=== PATIENT | male | born 1930 | race Caucasian/White ===

== ENCOUNTER 2018-02-02 10:04 | Emergency (ER) | payer OTHER ==
--- NOTE | 2018-02-02 10:22 | PDOC ---
Attending Attestation - Resident Resident Name: Valentino Null - ED Attending Attestation I have performed the following: I have examined & evaluated the patient, The case was reviewed & discussed with the resident, I agree w/resident's findings & plan, Exceptions are as noted - HPI HPI: 02/02/18 10:15 Mr Fagan is a mariana 87 yo M who presents to the ER to be checked out Briefly, he has a history of hypertension, hyperlipidemia, coronary artery disease, CABG 2. He and his were going to go out, she was loading the car in the garage The patient didn't realize this and closed the garage door onto the car He heard loud noises in the garage and his screaming which frightened him He then opened the garage door and heard the same noises This is a new vehicle and this concerned him greatly No chest pain No palpitations No shortness of breath PCP: Dr Mcdaniel Linoleum Tile Layer: Dr Dennis Lara, [facility], Social History: retired, resides at home with his Smoking:quit smoking >20 years ago Alcohol:none Drugs: none - Physicial Exam PE: 02/02/18 10:22 GENERAL: Awake, alert, and fully oriented, in no acute distress. HEAD: Normal with no signs of trauma. LUNGS: Breath sounds equal, clear to auscultation bilaterally. No wheezes, and no crackles. No accessory muscle use. HEART: Iregular rate and rhythm, normal S1 and S2 without murmur, rub or gallop. ABDOMEN: Soft, nontender, not distended, normoactive bowel sounds, no guarding, no rebound, no masses. No hepatomegaly or splenomegaly. MUSCULOSKELETAL: Normal range of motion at all joints. No bony deformities or tenderness. No CVA tenderness. NEUROLOGICAL: Cranial nerves II through XII grossly intact. Normal speech, gait not observed. SKIN: Warm, dry, normal turgor, no rashes or lesions noted. NEUROLOGICAL: Cranial nerves II-XII intact. Normal speech. Normal gait. PSYCHIATRIC: Cooperative. Good eye contact. Appropriate mood and affect. - Medical Decision Making 02/02/18 10:30 EKG: Afib rate of 62 bom, axis nml, intervals nml, no st elevation or depression , t waves upright Laboratory Tests 02/02/18 02/02/18 10:27 10:27 Creatine Kinase 78 Troponin I < 0.03 Pt feels better Will discharge to home Clinical impression: anxiety, initial presentation
--- NOTE | 2018-02-02 10:30 | PDOC ---
History of Present Illness - General Chief Complaint: Psychiatric Stated Complaint: ANXIETY Time Seen by Provider: 02/02/18 10:08 - History of Present Illness Initial Comments: 02/02/18 10:23 Mr. Fagan is an 87 yo male w/ pmh of HTN, HLD, CAD, and CABGx2 who presents for evaluation after experiencing a stressor earlier today when he hit the trunk of his new car into the garage door. He was not in the car and had no contact with either the garage or the car but experienced some anxiety and wanted to "get checked out." The patient denies chest pain, shortness of breath, headache and dizziness. Denies fever, chills, nausea, vomit, diarrhea and constipation. Denies dysuria, frequency, urgency and hematuria. Allergies: NKDA Past History - Past Medical History Allergies/Adverse Reactions: Allergies Allergy/AdvReac Type Severity Reaction Status Date / Time No Known Allergies Allergy Verified 02/02/18 10:05 Home Medications: Ambulatory Orders Atorvastatin Ca [Lipitor] 40 mg PO DAILY 10/20/14 Rivaroxaban [Xarelto -] 10 mg PO DAILY 05/09/15 Losartan Potassium [Cozaar -] 25 mg PO DAILY #30 tablet 02/29/16 Metoprolol Succinate [Toprol XL -] 25 mg PO DAILY #30 tab.sr.24h 02/29/16 Anemia: No Asthma: No Cancer: No Cardiac Disorders: Yes (HX CAD) CVA: No COPD: No CHF: No Dementia: No Diabetes: No GI Disorders: Yes (4-5 YRS AGO ULCER FROM ASPIRIN-HEALED AFTER STOPPING ASPIRIN) Disorders: No HTN: Yes (DX 1993) Hypercholesterolemia: Yes (DX 1993) Liver Disease: No Seizures: No Thyroid Disease: No - Surgical History Abdominal Surgery: No Appendectomy: No Cardiac Surgery: Yes (20 YRS. CABG X 5, 2010 CABG X 3 OR 4-CAN'T REMEMBER) Cholecystectomy: No Lung Surgery: No Neurologic Surgery: No Orthopedic Surgery: No - Immunization History Immunization Up to Date: Yes - Suicide/Smoking/Psychosocial Hx Smoking History: Former smoker Have you smoked in the past 12 months: No If you are a former smoker, when did you quit?: 30 YRS AGO Hx Alcohol Use: Yes (1 WINE EVERY OTHER DAY) Drug/Substance Use Hx: No Substance Use Type: Alcohol Hx Substance Use Treatment: No Review of Systems - Review of Systems Comments:: 02/02/18 10:30 GENERAL/CONSTITUTIONAL: No fever or chills. No weakness. HEAD, EYES, EARS, NOSE AND THROAT: No change in vision. No ear pain or discharge. No sore throat. CARDIOVASCULAR: No chest pain or shortness of breath RESPIRATORY: No cough, wheezing, or hemoptysis. GASTROINTESTINAL: No nausea, vomiting, diarrhea or constipation. GENITOURINARY: No dysuria, frequency, or change in urination. MUSCULOSKELETAL: No joint or muscle swelling or pain. No neck or back pain. SKIN: No rash NEUROLOGIC: No headache, vertigo, loss of consciousness, or change in strength/ sensation. ENDOCRINE: No increased thirst. No abnormal weight change HEMATOLOGIC/LYMPHATIC: No anemia, easy bleeding, or history of blood clots. ALLERGIC/IMMUNOLOGIC: No hives or skin allergy. *Physical Exam - Physical Exam Comments: 02/02/18 10:30 GENERAL: Awake, alert, and fully oriented, in no acute distress HEAD: No signs of trauma, normocephalic, atraumatic EYES: PERRLA, EOMI, sclera anicteric, conjunctiva clear ENT: Auricles normal inspection, hearing grossly normal, nares patent, oropharynx clear without exudates. Moist mucosa NECK: Normal ROM, supple, no lymphadenopathy, JVD, or masses LUNGS: No distress, speaks full sentences, clear to auscultation bilaterally HEART: Regular rate and rhythm, normal S1 and S2, no murmurs, rubs or gallops, peripheral pulses normal and equal bilaterally. ABDOMEN: Soft, nontender, normoactive bowel sounds. No guarding, no rebound. No masses EXTREMITIES: Normal inspection, Normal range of motion, no edema. No clubbing or cyanosis. NEUROLOGICAL: Cranial nerves II through XII grossly intact. Normal speech, normal gait, no focal sensorimotor deficits SKIN: Warm, Dry, normal turgor, no rashes or lesions noted. Medical Decision Making - Medical Decision Making 02/02/18 10:30 Mr. Fagan is an 87 yo male w/ pmh as described who presents for evaluation after experiencing stressor earlier today. Patient appears well on exam, is talkative and pleasant. Has no complaints at this time. EKG / cardiac profile sent for evaluation. 02/02/18 11:16 Patient EKG significant for rate controlled afib. Normal access, normal intervals, no ST elevations or depressions. Non-concerning EKG. Cardiac labs wnl as below. Discharging patient w/ instructions to follow-up with primary care provider for further evaluation. Patient verbalized understanding and agreement and will comply. *DC/Admit/Observation/Transfer Diagnosis at time of Disposition: Anxiety - Discharge Dispostion Disposition: HOME - Referrals Referrals: Qamar Mcdaniel MD [Staff Physician] - - Patient Instructions Additional Instructions: Please return to ER if any pain, palpitations, fever, chills, or other concerning symptoms. Follow-up with primary care provider as needed for any further non-emergent needs. - Post Discharge Activity
[2018-02-02 10:39] VITALS: BP 145/79; PULSE 61; TEMP 98.3; BMI 21.4
--- NOTE | 2018-02-03 08:23 | EKG ---
Test Reason : Blood Pressure : / mmHG Vent. Rate : 062 BPM Atrial Rate : 119 BPM P-R Int : 000 ms QRS Dur : 106 ms QT Int : 426 ms P-R-T Axes : 000 -05 053 degrees QTc Int : 432 ms ATRIAL FIBRILLATION ABNORMAL ECG NO PREVIOUS ECGS AVAILABLE Confirmed by TREVOR LAKHANI, MAGI ([id number]) on 02/03/2018 8:22:53 AM Referred By: ELVIRA CERON Confirmed By:MAGI MURRAY MD
== END 2018-02-02 11:29 | disposition home or self-care (01) ==
LOC: FER 10:04
DX: F41.0 Panic disorder [episodic paroxysmal anxiety] (principal); I48.91 Unspecified atrial fibrillation; Z87.891 Personal history of nicotine dependence; I10 Essential (primary) hypertension; E78.00 Pure hypercholesterolemia, unspecified; I25.10 Atherosclerotic heart disease of native coronary artery without angina pectoris
CPT/HCPCS: 36415; 82550; 84484; 93005; 99282-25

== ENCOUNTER 2018-02-20 23:06 | Observation (INO) | payer OTHER ==
--- NOTE | 2018-02-20 23:24 | PDOC ---
History of Present Illness - General Chief Complaint: Pain, Acute Stated Complaint: PAIN IN LEFT ARM AND BACK Time Seen by Provider: 02/20/18 23:22 History Source: Patient Exam Limitations: No Limitations - History of Present Illness Initial Comments: 02/20/18 23:52 This is an 87-year-old male who comes in complaining of left arm pain and posterior chest pain. Patient denies any associated symptoms of shortness of breath, nausea, diaphoresis. Patient does have a history of coronary artery disease, hypertension, high cholesterol. Patient has had bypass surgery 2 in the past. Prior to the last time he had the surgery he was experiencing significant chest pain that was different than this time. Patient also has a history of atrial fibrillation and is on xaralto for an anticoagulant. PAST MEDICAL HISTORY: Significant history of coronary artery disease with multiple is factors PAST SURGICAL HISTORY: Coronary artery bypass surgery FAMILY HISTORY: no pertinant history SOCIAL HISTORY: Pt lives with family and is retired. MEDICATIONS: reviewed ALLERGIES: As per nursing notes Review of Systems General: No fevers or chills, no weakness, no weight loss HEENT: No change in vision. No sore throat,. No ear pain CardioVascular: No chest pain or shortness of breath Respiratory:No cough, or wheezing. Gastrointestinal: no nausea, vomitting, diarrhea or constipation, No rectal bleeding Genitourinary: No dysuria, hematuria, or frequency Musculoskeletal: No joint or muscle pain or swelling Neurologic: No headache, vertigo, dizziness or loss of consciousness Psychiatric: nor depression Skin: No rashes or easy bruising Endocrine: no increased thirst or abnormal weight change Allergic: no skin or latex allergy All other systems reviewed and normal Exam: General: Well-nourished well-developed individual, no acute distress HEENT: Throat: Normal, tonsils normal, no erythema or exudate Neck: Supple, no meningeal signs, no lymphadenopathy Eyes::Pupils equal reactive and round, extraocular motion intact Chest: Nontender to palpation Cardiac: S1-S2 normal, regular rate and rhythm, no murmurs rubs or gallops Respiratory: Lungs clear to auscultation bilateral Abdomen: Soft, nondistended, normal bowel sounds, nontender to palpation diffusely Extremities: Warm, dry, no cyanosis, clubbing, or edema Skin: No rashes Neuro: Alert and oriented x3, CN II - XII intact, nonfocal exam with normal strength, normal sensation, normal reflexes, normal gait, Psych: Normal mood and affect Medical decision making this is a 87-year-old male who comes in complaining of left arm and posterior chest pain. Patient's heart scores 5. Patient has a troponin of 0.06 which is measurable and the upper limit of normal. Dr. Benavides was contacted as this is a patient of Dr. Benavides's and his requested that the patient be admitted by the hospitalist service. 02/21/18 00:52 Patient not given aspirin as he says he cannot take it because it fitzgerald a hole in his stomach Past History - Past Medical History Allergies/Adverse Reactions: Allergies Allergy/AdvReac Type Severity Reaction Status Date / Time No Known Allergies Allergy Verified 02/20/18 23:11 Home Medications: Ambulatory Orders Atorvastatin Ca [Lipitor] 40 mg PO DAILY 10/20/14 Rivaroxaban [Xarelto -] 10 mg PO DAILY 05/09/15 Losartan Potassium [Cozaar -] 25 mg PO DAILY #30 tablet 02/29/16 Metoprolol Succinate [Toprol XL -] 25 mg PO DAILY #30 tab.sr.24h 02/29/16 Anemia: No Asthma: No Cancer: No Cardiac Disorders: Yes (HX CAD) CVA: No COPD: No CHF: No Dementia: No Diabetes: No GI Disorders: Yes (4-5 YRS AGO ULCER FROM ASPIRIN-HEALED AFTER STOPPING ASPIRIN) Disorders: No HTN: Yes (DX 1993) Hypercholesterolemia: Yes (DX 1993) Liver Disease: No Seizures: No Thyroid Disease: No - Surgical History Abdominal Surgery: No Appendectomy: No Cardiac Surgery: Yes (20 YRS. CABG X 5, 2010 CABG X 3 OR 4-CAN'T REMEMBER) Cholecystectomy: No Lung Surgery: No Neurologic Surgery: No Orthopedic Surgery: No - Immunization History Immunization Up to Date: Yes - Suicide/Smoking/Psychosocial Hx Smoking History: Former smoker Have you smoked in the past 12 months: No If you are a former smoker, when did you quit?: 30 YRS AGO Information on smoking cessation initiated: No Hx Alcohol Use: No Drug/Substance Use Hx: No Substance Use Type: Alcohol Hx Substance Use Treatment: No *Physical Exam - Vital Signs Last Vital Signs Temp Pulse Resp BP Pulse Ox 97.7 F 56 L 18 132/75 99 02/20/18 23:13 02/20/18 23:13 02/20/18 23:13 02/20/18 23:13 02/20/18 23:13 Heart Score/ECG Review - History History: Slightly suspicious - Electrocardiogram EKG: Non specific repolarization disturbance - Age Age: >/= 65 - Risk Factors Risk Factors Heart Score: Yes Hx Hypercholesterolemia, Yes Hx Hypertension, Yes Positive family hx of cardiac disease Based on the list above the patient has:: >/=3 risk factors or Hx atherosclerotic disease - Troponin Troponin: </= normal limit - Score Heart Score - Total: 5 ED Treatment Course - LABORATORY CBC & Chemistry Diagram: 02/20/18 23:30 02/20/18 23:30 *DC/Admit/Observation/Transfer Diagnosis at time of Disposition: Chest pain - Discharge Dispostion Condition at time of disposition: Stable Decision to Admit order: Yes - Referrals - Patient Instructions - Post Discharge Activity
[2018-02-20 23:36] LABS: BASO % 2.6 % (0-2.0); EOS % 4.6 % (0-4.5); HEMATOCRIT 36.2 % (35.4-49); HEMOGLOBIN 12.2 GM/dl (11.7-16.9); LYMPH % 24.4 % (8-40); MCH 28.4 pg (25.7-33.7); MCHC 33.6 g/dl (32.0-35.9); MEAN CELL VOLUME 84.5 fl (80-96); MEAN PLT VOLUME 10.1 fl (7.5-11.1); MONO % 9.5 % (3.8-10.2); NEUT % 58.9 % (42.8-82.8); PLATELET COUNT 140 K/MM3 (134-434); RBC 4.29 M/mm3 (4.00-5.60); RDW 14.9 % (11.9-15.9); WHITE BLOOD COUNT 7.9 K/mm3 (4.0-10.8)
[2018-02-20 23:38] LABS: URINE APPEARANCE Clear; URINE BILIRUBIN Negative (NEGATIVE); URINE GLUCOSE (UA) Negative (NEGATIVE); URINE KETONE Negative (NEGATIVE); URINE LEUK ESTERASE Negative (NEGATIVE); URINE NITRITE Negative (NEGATIVE); URINE PROTEIN Negative (NEGATIVE); URINE UROBILINOGEN 0.2 (0.2-1.0)
[2018-02-20 23:42] LABS: URINE COLOR YELLOW
[2018-02-20 23:51] LABS: PH,URINE 5.5 (4.5-8); URINE APPEARANCE Clear; URINE BILIRUBIN Negative (NEGATIVE); URINE GLUCOSE (UA) Negative (NEGATIVE); URINE KETONE Trace (NEGATIVE); URINE LEUK ESTERASE Negative (NEGATIVE); URINE NITRITE Negative (NEGATIVE); URINE PROTEIN Trace (NEGATIVE)
[2018-02-20 23:52] LABS: URINE COLOR YELLOW
[2018-02-21 00:03] LABS: ALBUMIN 3.4 g/dl (3.5-5.0); ALK PHOS 75 U/L (32-92); ANION GAP 5 (8-16); BILIRUBIN,TOTAL 0.7 mg/dl (0.2-1.0); BLOOD UREA NITROGEN 21 mg/dl (7-18); CALCIUM 8.4 mg/dl (8.4-10.2); CHLORIDE 107 mmol/L (98-107); CO2 25 mmol/L (22-28); CREATININE 1.2 mg/dl (0.6-1.3); GLUCOSE,RANDOM 96 mg/dl (74-106); POTASSIUM 3.9 mmol/L (3.5-5.1); SGOT/AST 15 U/L (10-42); SGPT/ALT 11 U/L (10-40); SODIUM 137 mmol/L (136-145); TOT PROT 6.5 g/dl (6.4-8.3)
[2018-02-21] MEDS ORDERED: ASPIRIN 81 MG CHEWABLE TABLETS PO ONE (00:48)
[2018-02-21] MEDS ORDERED: ASPIRIN 81 MG CHEWABLE TABLETS ONE (00:51)
[2018-02-21 01:30] VITALS: BMI 20.8
[2018-02-21 07:57] LABS: BASO % 0.7 % (0-2.0); EOS % 5.1 % (0-4.5); HEMOGLOBIN 12.4 GM/dl (11.7-16.9); LYMPH % 23.4 % (8-40); MCH 28.6 pg (25.7-33.7); MCHC 33.5 g/dl (32.0-35.9); MEAN CELL VOLUME 85.3 fl (80-96); MEAN PLT VOLUME 9.8 fl (7.5-11.1); NEUT % 62.8 % (42.8-82.8); PLATELET COUNT 127 K/MM3 (134-434); RBC 4.33 M/mm3 (4.00-5.60); RDW 14.8 % (11.9-15.9); WHITE BLOOD COUNT 6.5 K/mm3 (4.0-10.8)
[2018-02-21 08:21] LABS: ANION GAP 5 (8-16); BLOOD UREA NITROGEN 19 mg/dl (7-18); CALCIUM 8.7 mg/dl (8.4-10.2); CHLORIDE 106 mmol/L (98-107); CO2 28 mmol/L (22-28); CREATININE 1.1 mg/dl (0.6-1.3); GLUCOSE,RANDOM 92 mg/dl (74-106); MAGNESIUM 1.9 mg/dL (1.8-2.4); POTASSIUM 4.4 mmol/L (3.5-5.1); SODIUM 139 mmol/L (136-145)
--- NOTE | 2018-02-21 08:33 | HP ---
CHIEF COMPLAINT: chest discomfort radiating to left scapula PCP: Dr Mcdaniel Film Critic: Dr Matty Lara HISTORY OF PRESENT ILLNESS: Patient is a 87 y/o male with a past medical history of CAD, CABG x 5 (1991 and 2010), AFib (xarelto), and hypertension. patient reports that yesterday he returned from a 9 [address] car ride from [facility] to [place]. Patient reports when he arrived home he developed chest pain to left side of the chest radiating to the left shoulder. Patient denies any shortness of breath or dyspnea on exertion. He does report the pain was intermittent and resolved spontaneously on its own. ER course was notable for: (1)EKG afib w/slow ventricular rate (2)troponin 0.03 (3) chest x-ray no acute pathology noted Recent Travel: returned from a 9 hour car ride from [place] to [place] PAST MEDICAL HISTORY: see hpi PAST SURGICAL HISTORY: see hpi Social History: happily retired, resides at home with Smoking:former Alcohol:last drank call 1 year ago Drugs: none Family History: noncontributory Allergies No Known Allergies Allergy (Verified 02/20/18 23:11) HOME MEDICATIONS: Home Medications Medication Instructions Recorded Atorvastatin Ca [Lipitor] 40 mg PO DAILY 10/20/14 Rivaroxaban [Xarelto -] 10 mg PO DAILY 05/09/15 Losartan Potassium [Cozaar -] 25 mg PO DAILY #30 tablet 02/29/16 Metoprolol Succinate [Toprol XL -] 25 mg PO DAILY #30 tab.sr.24h 02/29/16 REVIEW OF SYSTEMS CONSTITUTIONAL: Absent: fever, chills, diaphoresis, generalized weakness, malaise, loss of appetite, weight change HEENT: Absent: rhinorrhea, nasal congestion, throat pain, throat swelling, difficulty swallowing, mouth swelling, ear pain, eye pain, visual changes CARDIOVASCULAR: Absent: chest pain, syncope, palpitations, irregular heart rate, lightheadedness , peripheral edema RESPIRATORY: Absent: cough, shortness of breath, dyspnea with exertion, orthopnea, wheezing, stridor, hemoptysis GASTROINTESTINAL: Absent: abdominal pain, abdominal distension, nausea, vomiting, diarrhea, constipation, melena, hematochezia GENITOURINARY: Absent: dysuria, frequency, urgency, hesitancy, hematuria, flank pain, genital pain MUSCULOSKELETAL: Absent: myalgia, arthralgia, joint swelling, back pain, neck pain SKIN: Absent: rash, itching, pallor HEMATOLOGIC/IMMUNOLOGIC: Absent: easy bleeding, easy bruising, lymphadenopathy, frequent infections ENDOCRINE: Absent: unexplained weight gain, unexplained weight loss, heat intolerance, cold intolerance NEUROLOGIC: Absent: headache, focal weakness or paresthesias, dizziness, unsteady gait, seizure, mental status changes, bladder or bowel incontinence PSYCHIATRIC: Absent: anxiety, depression, suicidal or homicidal ideation, hallucinations. PHYSICAL EXAMINATION Vital Signs - 24 hr 02/20/18 02/21/18 02/21/18 23:13 00:53 00:55 Temperature 97.7 F 97.6 F Pulse Rate 56 L 68 Pulse Rate [ Left] Respiratory 18 17 20 Rate Blood Pressure 132/75 142/62 Blood Pressure [Right] O2 Sat by Pulse 99 99 100 Oximetry (%) 02/21/18 02/21/18 02/21/18 00:59 06:14 07:48 Temperature 98.6 F Pulse Rate 68 Pulse Rate [ 64 Left] Respiratory 17 20 Rate Blood Pressure 115/59 Blood Pressure 134/72 [Right] O2 Sat by Pulse 99 99 99 Oximetry (%) GENERAL: Awake, alert, and fully oriented, in no acute distress. HEAD: Normal with no signs of trauma. EYES: Pupils equal, round and reactive to light, extraocular movements intact, sclera anicteric, conjunctiva clear. No lid lag. EARS, NOSE, THROAT: Ears normal, nares patent, oropharynx clear without exudates. Moist mucous membranes. NECK: Normal range of motion, supple without lymphadenopathy, JVD, or masses. LUNGS: Breath sounds equal, clear to auscultation bilaterally. No wheezes, and no crackles. No accessory muscle use. HEART: irregular rate and rhythm, normal S1 and S2 without murmur, rub or gallop. ABDOMEN: Soft, nontender, not distended, normoactive bowel sounds, no guarding, no rebound, no masses. No hepatomegaly or splenomegaly. MUSCULOSKELETAL: Normal range of motion at all joints. No bony deformities or tenderness. No CVA tenderness. UPPER EXTREMITIES: 2+ pulses, warm, well-perfused. No cyanosis. No clubbing. No peripheral edema. LOWER EXTREMITIES: 2+ pulses, warm, well-perfused. No calf tenderness. No peripheral edema. NEUROLOGICAL: Cranial nerves II-XII intact. Normal speech. Normal gait. PSYCHIATRIC: Cooperative. Good eye contact. Appropriate mood and affect. SKIN: Warm, dry, normal turgor, no rashes or lesions noted, normal capillary refill. Laboratory Results - last 24 hr 02/20/18 02/20/18 02/20/18 23:30 23:30 23:30 WBC 7.9 RBC 4.29 Hgb 12.2 Hct 36.2 MCV 84.5 MCH 28.4 MCHC 33.6 RDW 14.9 Plt Count 140 MPV 10.1 Neutrophils % 58.9 Lymphocytes % 24.4 D Monocytes % 9.5 Eosinophils % 4.6 H Basophils % 2.6 H D Sodium 137 Potassium 3.9 Chloride 107 Carbon Dioxide 25 Anion Gap 5 L BUN 21 H Creatinine 1.2 Creat Clearance w eGFR 57.41 Random Glucose 96 Calcium 8.4 Phosphorus Magnesium Total Bilirubin 0.7 AST 15 D ALT 11 D Alkaline Phosphatase 75 Creatine Kinase Troponin I Total Protein 6.5 Albumin 3.4 L Urine Color Yellow Urine Appearance Clear Urine pH 6.0 Ur Specific [place] 1.025 Urine Protein Negative Urine Glucose (UA) Negative Urine Ketones Negative Urine Blood Negative Urine Nitrite Negative Urine Bilirubin Negative Urine Urobilinogen 0.2 Ur Leukocyte Esterase Negative 02/20/18 02/20/18 02/20/18 23:30 23:30 23:40 WBC RBC Hgb Hct MCV MCH MCHC RDW Plt Count MPV Neutrophils % Lymphocytes % Monocytes % Eosinophils % Basophils % Sodium Potassium Chloride Carbon Dioxide Anion Gap BUN Creatinine Creat Clearance w eGFR Random Glucose Calcium Phosphorus Magnesium Total Bilirubin AST ALT Alkaline Phosphatase Creatine Kinase 58 Troponin I 0.06 D Total Protein Albumin Urine Color Yellow Urine Appearance Clear Urine pH 5.5 Ur Specific [place] 1.025 Urine Protein Trace Urine Glucose (UA) Negative Urine Ketones Trace Urine Blood Negative Urine Nitrite Negative Urine Bilirubin Negative Urine Urobilinogen 1.0 Ur Leukocyte Esterase Negative 02/21/18 02/21/18 02/21/18 07:30 07:30 07:30 WBC 6.5 RBC 4.33 Hgb 12.4 Hct 37.0 MCV 85.3 MCH 28.6 MCHC 33.5 RDW 14.8 Plt Count 127 L MPV 9.8 Neutrophils % 62.8 Lymphocytes % 23.4 Monocytes % 8.0 Eosinophils % 5.1 H Basophils % 0.7 Sodium 139 Potassium 4.4 Chloride 106 Carbon Dioxide 28 Anion Gap 5 L BUN 19 H Creatinine 1.1 Creat Clearance w eGFR Random Glucose 92 Calcium 8.7 Phosphorus 3.0 Magnesium 1.9 Total Bilirubin AST ALT Alkaline Phosphatase Creatine Kinase Troponin I < 0.03 D Total Protein Albumin Urine Color Urine Appearance Urine pH Ur Specific [place] Urine Protein Urine Glucose (UA) Urine Ketones Urine Blood Urine Nitrite Urine Bilirubin Urine Urobilinogen Ur Leukocyte Esterase ASSESSMENT/PLAN: 1) cardiovascular chest pain r/o acs - troponin x 2 wnl, repeat ekg this morning afib, no ischemic changes noted, patient denies any chest discomfort at this time - continuous telemetric monitoring - Pending nuclear stress test and echo today - appreciate cardiology input CAD - continue statin atrial fibrillation - rate controlled, continue toprol - continues xarelto (renal dose) home dose hypertension - continue losartan - b/p at goal F/E/N - nothing by mouth pending stress test PPX - xarelto - pepcid dispo: pt requires telemetry observation Hospitalist Screening - Colonoscopy Questionnaire Colonoscopy Questionnaire: Colonoscopy Questionnaire
[2018-02-21 09:01] LABS: CHOLESTEROL 113 mg/dl; HDL CHOLESTEROL 33 mg/dl (29-89); LDL CHOLESTEROL (ONLY DFH) 66 mg/dl; TRIGLYCERIDES 69 mg/dl (35-160)
[2018-02-21] MEDS: LOSARTAN POTASSIUM 25 MG TABLET PO SCH (09:16)
[2018-02-21] MEDS: ASPIRIN 81 MG CHEWABLE TABLETS PO SCH (09:17)
[2018-02-21] MEDS ORDERED: RIVAROXABAN 10 MG TABLET PO SCH (10:00)
[2018-02-21] MEDS ORDERED: ATORVASTATIN CA 80 MG TABLET (FP) PO SCH (10:00)
--- NOTE | 2018-02-21 10:37 | CON.CARD ---
Consult Consult Specialty:: Cardiology - History of Present Illness History of Present Illness: This is an 87-year-old male who comes in complaining of left arm pain and posterior chest pain. Patient denies any associated symptoms of shortness of breath, nausea, diaphoresis. Patient does have a history of coronary artery disease, hypertension, high cholesterol. Patient has had bypass surgery 2 in the past. Prior to the last time he had the surgery he was experiencing significant chest pain that was different than this time. Patient also has a history of atrial fibrillation and is on xaralto for an anticoagulant. PAST MEDICAL HISTORY: PCP: Dr Mcdaniel Deburr Operator: Dr Matty Lara HISTORY OF PRESENT ILLNESS: Patient is a 87 y/o male with a past medical history of CAD, CABG x 5 (1991 and 2010),s/p PCI (details unknown) AFib (xarelto ), and hypertension. patient - History Source History Provided By: Patient, Medical Record - Past Medical History Cardio/Vascular: Yes: CAD, HTN - Past Surgical History Past Surgical History: Yes: CABG - Alcohol/Substance Use Hx Alcohol Use: No - Smoking History Smoking history: Former smoker Have you smoked in the past 12 months: No If you are a former smoker, when did you quit?: 30 YRS AGO Home Medications - Allergies Allergies/Adverse Reactions: Allergies Allergy/AdvReac Type Severity Reaction Status Date / Time No Known Allergies Allergy Verified 02/20/18 23:11 - Home Medications Home Medications: Ambulatory Orders Atorvastatin Ca [Lipitor] 40 mg PO DAILY 10/20/14 Rivaroxaban [Xarelto -] 10 mg PO DAILY 05/09/15 Losartan Potassium [Cozaar -] 25 mg PO DAILY #30 tablet 02/29/16 Metoprolol Succinate [Toprol XL -] 25 mg PO DAILY #30 tab.sr.24h 02/29/16 Review of Systems - Review of Systems Constitutional: reports: No Symptoms Eyes: reports: No Symptoms HENT: reports: No Symptoms Neck: reports: No Symptoms Cardiovascular: reports: Chest Pain Gastrointestinal: reports: No Symptoms Genitourinary: reports: No Symptoms Breasts: reports: No Symptoms Reported Musculoskeletal: reports: No Symptoms Integumentary: reports: No Symptoms Neurological: reports: No Symptoms Endocrine: reports: No Symptoms Hematology/Lymphatic: reports: No Symptoms Psychiatric: reports: No Symptoms Vital Signs: Vital Signs Temperature 98.6 F 05/30/18 06:14 Pulse Rate 68 02/21/18 06:14 Respiratory Rate 20 02/21/18 06:14 Blood Pressure 115/59 02/21/18 06:14 O2 Sat by Pulse Oximetry (%) 99 02/21/18 07:48 Constitutional: Yes: Well Nourished, No Distress, Calm Eyes: Yes: WNL, Conjunctiva Clear, EOM Intact HENT: Yes: WNL, Atraumatic, Normocephalic Neck: Yes: WNL, Supple, Trachea Midline Respiratory: Yes: WNL, Regular, CTA Bilaterally Gastrointestinal: Yes: WNL, Normal Bowel Sounds Renal/: Yes: WNL Cardiovascular: Yes: Pulse Irregular Heart Sounds: Yes: S1, S2 Musculoskeletal: Yes: WNL Extremities: Yes: WNL Integumentary: Yes: WNL Neurological: Yes: WNL, Alert, Oriented ...Motor Strength: WNL Psychiatric: Yes: WNL, Alert, Oriented - Other Data Labs, Other Data: CBC, BMP 02/21/18 07:30 02/21/18 07:30 Troponin, BNP 02/20/18 02/21/18 23:30 07:30 Troponin I 0.06 D < 0.03 D Troponin, BNP 02/20/18 02/21/18 23:30 07:30 Troponin I 0.06 D < 0.03 D Laboratory Tests 02/20/18 02/20/18 02/20/18 23:30 23:30 23:30 WBC 7.9 RBC 4.29 Hgb 12.2 Hct 36.2 MCV 84.5 MCH 28.4 MCHC 33.6 RDW 14.9 Plt Count 140 MPV 10.1 Neutrophils % 58.9 Lymphocytes % 24.4 D Monocytes % 9.5 Eosinophils % 4.6 H Basophils % 2.6 H D Sodium 137 Potassium 3.9 Chloride 107 Carbon Dioxide 25 Anion Gap 5 L BUN 21 H Creatinine 1.2 Creat Clearance w eGFR 57.41 Random Glucose 96 Hemoglobin A1c % Calcium 8.4 Phosphorus Magnesium Total Bilirubin 0.7 AST 15 D ALT 11 D Alkaline Phosphatase 75 Creatine Kinase Troponin I Total Protein 6.5 Albumin 3.4 L Triglycerides Cholesterol Total LDL Cholesterol HDL Cholesterol Urine Color Yellow Urine Appearance Clear Urine pH 6.0 Ur Specific Carbon 1.025 Urine Protein Negative Urine Glucose (UA) Negative Urine Ketones Negative Urine Blood Negative Urine Nitrite Negative Urine Bilirubin Negative Urine Urobilinogen 0.2 Ur Leukocyte Esterase Negative 02/20/18 02/20/18 02/20/18 23:30 23:30 23:40 WBC RBC Hgb Hct MCV MCH MCHC RDW Plt Count MPV Neutrophils % Lymphocytes % Monocytes % Eosinophils % Basophils % Sodium Potassium Chloride Carbon Dioxide Anion Gap BUN Creatinine Creat Clearance w eGFR Random Glucose Hemoglobin A1c % Calcium Phosphorus Magnesium Total Bilirubin AST ALT Alkaline Phosphatase Creatine Kinase 58 Troponin I 0.06 D Total Protein Albumin Triglycerides Cholesterol Total LDL Cholesterol HDL Cholesterol Urine Color Yellow Urine Appearance Clear Urine pH 5.5 Ur Specific Carbon 1.025 Urine Protein Trace Urine Glucose (UA) Negative Urine Ketones Trace Urine Blood Negative Urine Nitrite Negative Urine Bilirubin Negative Urine Urobilinogen 1.0 Ur Leukocyte Esterase Negative 02/21/18 02/21/18 02/21/18 07:15 07:30 07:30 WBC 6.5 RBC 4.33 Hgb 12.4 Hct 37.0 MCV 85.3 MCH 28.6 MCHC 33.5 RDW 14.8 Plt Count 127 L MPV 9.8 Neutrophils % 62.8 Lymphocytes % 23.4 Monocytes % 8.0 Eosinophils % 5.1 H Basophils % 0.7 Sodium 139 Potassium 4.4 Chloride 106 Carbon Dioxide 28 Anion Gap 5 L BUN 19 H Creatinine 1.1 Creat Clearance w eGFR Random Glucose 92 Hemoglobin A1c % Calcium 8.7 Phosphorus 3.0 Magnesium 1.9 Total Bilirubin AST ALT Alkaline Phosphatase Creatine Kinase Troponin I Total Protein Albumin Triglycerides 69 Cholesterol 113 Total LDL Cholesterol 66 HDL Cholesterol 33 D Urine Color Urine Appearance Urine pH Ur Specific Carbon Urine Protein Urine Glucose (UA) Urine Ketones Urine Blood Urine Nitrite Urine Bilirubin Urine Urobilinogen Ur Leukocyte Esterase 02/21/18 02/21/18 07:30 07:30 WBC RBC Hgb Hct MCV MCH MCHC RDW Plt Count MPV Neutrophils % Lymphocytes % Monocytes % Eosinophils % Basophils % Sodium Potassium Chloride Carbon Dioxide Anion Gap BUN Creatinine Creat Clearance w eGFR Random Glucose Hemoglobin A1c % 5.9 Calcium Phosphorus Magnesium Total Bilirubin AST ALT Alkaline Phosphatase Creatine Kinase Troponin I < 0.03 D Total Protein Albumin Triglycerides Cholesterol Total LDL Cholesterol HDL Cholesterol Urine Color Urine Appearance Urine pH Ur Specific Carbon Urine Protein Urine Glucose (UA) Urine Ketones Urine Blood Urine Nitrite Urine Bilirubin Urine Urobilinogen Ur Leukocyte Esterase Imaging - Results Chest X-ray: Image Reviewed (s/pOHS no i/e) EKG: Image Reviewed (af slow VR rep abn) Assessment/Plan cp sx af on xarelto s/p cabg x2 hlp r/o mi neg Plan ECHO MIBI ST will f/u
--- NOTE | 2018-02-21 13:19 | EKG ---
Test Reason : Blood Pressure : / mmHG Vent. Rate : 060 BPM Atrial Rate : 111 BPM P-R Int : 000 ms QRS Dur : 102 ms QT Int : 430 ms P-R-T Axes : 000 -11 050 degrees QTc Int : 430 ms ATRIAL FIBRILLATION MINIMAL VOLTAGE CRITERIA FOR LVH, MAY BE NORMAL VARIANT CANNOT RULE OUT ANTERIOR INFARCT , AGE UNDETERMINED ABNORMAL ECG WHEN COMPARED WITH ECG OF 20-FEB-2018 23:13, NO SIGNIFICANT CHANGE WAS FOUND Confirmed by TREVOR LAKHANI, MAGI ([id number]) on 02/21/2018 1:19:05 PM Referred By: MIGEL Confirmed By:MAGI MURRAY MD
--- NOTE | 2018-02-21 13:27 | EKG ---
Test Reason : Blood Pressure : / mmHG Vent. Rate : 057 BPM Atrial Rate : 048 BPM P-R Int : 000 ms QRS Dur : 106 ms QT Int : 448 ms P-R-T Axes : 000 -08 045 degrees QTc Int : 436 ms ATRIAL FIBRILLATION WITH SLOW VENTRICULAR RESPONSE MINIMAL VOLTAGE CRITERIA FOR LVH, MAY BE NORMAL VARIANT ABNORMAL ECG WHEN COMPARED WITH ECG OF 02-FEB-2018 10:28, NO SIGNIFICANT CHANGE WAS FOUND Confirmed by TREVOR LAKHANI, MAGI ([id number]) on 02/21/2018 1:27:25 PM Referred By: MD CUEVAS Confirmed By:MAGI MURRAY MD
[2018-02-21] MEDS: RANITIDINE HCL 150 MG TABLET (FP) PO SCH (21:39)
[2018-02-21] MEDS ORDERED: ATORVASTATIN CA 40 MG TABLET (FP) PO SCH ×2 (22:00)
[2018-02-21] MEDS ORDERED: FAMOTIDINE 20 MG TABLET PO SCH (22:00)
[2018-02-22 08:36] VITALS: TEMP 98.4
[2018-02-22] MEDS: LOSARTAN POTASSIUM 25 MG TABLET PO SCH (09:31)
[2018-02-22] MEDS: RANITIDINE HCL 150 MG TABLET (FP) PO SCH (09:31)
[2018-02-22] MEDS: ASPIRIN 81 MG CHEWABLE TABLETS PO SCH (09:32)
--- NOTE | 2018-02-22 09:58 | PN ---
Progress Note (short form) - Note Progress Note: Subjective: The patient was seen and examined at the bedside, he has no complaints at this time. Denies any chest pain Current Medications Generic Name Dose Route Start Last Admin Trade Name Iliana PRN Reason Stop Dose Admin Aspirin 81 mg 02/21/18 10:00 02/22/18 09:32 Asa - PO Not Given DAILY RAMON Atorvastatin Calcium 40 mg 02/21/18 22:00 02/21/18 21:39 Lipitor - PO 40 mg HS RAMON Administration Enoxaparin Sodium 70 mg 02/22/18 10:00 02/22/18 09:32 Lovenox - SQ 70 mg BID RAMON Administration Losartan Potassium 25 mg 02/21/18 10:00 02/22/18 09:31 Cozaar - PO 25 mg DAILY RAMON Administration Metoprolol Succinate 25 mg 02/22/18 10:00 02/22/18 09:31 Toprol Xl - PO 25 mg DAILY RAMON Administration Ranitidine HCl 150 mg 02/21/18 22:00 02/22/18 09:31 Zantac - PO 150 mg BID RAMON Administration Objective: Vital Signs Period Temp Pulse Resp BP Sys/Reynoso Pulse Ox Last 24 Hr 97.9 F-98.4 F 69-90 18-22 144-170/73-95 99-100 Physical Exam: General: NAD, A&Ox3 Lungs: CTA bilaterally Heart: Irregular pulse, S1S2 Abd: Soft, non-tender, non-distended. Normoactive bowel sounds Ext: Warm, well-perfused. 2+ DP/PT bilaterally Neuro: No focal deficits CBCD WBC 6.5 K/mm3 (4.0-10.8) 02/21/18 07:30 RBC 4.33 M/mm3 (4.00-5.60) 02/21/18 07:30 Hgb 12.4 GM/dl (11.7-16.9) 02/21/18 07:30 Hct 37.0 % (35.4-49) 02/21/18 07:30 MCV 85.3 fl (80-96) 02/21/18 07:30 MCHC 33.5 g/dl (32.0-35.9) 02/21/18 07:30 RDW 14.8 % (11.9-15.9) 02/21/18 07:30 Plt Count 127 K/MM3 (134-434) L 02/21/18 07:30 MPV 9.8 fl (7.5-11.1) 02/21/18 07:30 CMP Sodium 139 mmol/L (136-145) 02/21/18 07:30 Potassium 4.4 mmol/L (3.5-5.1) 02/21/18 07:30 Chloride 106 mmol/L (98-107) 02/21/18 07:30 Carbon Dioxide 28 mmol/L (22-28) 02/21/18 07:30 Anion Gap 5 (8-16) L 02/21/18 07:30 BUN 19 mg/dl (7-18) H 02/21/18 07:30 Creatinine 1.1 mg/dl (0.6-1.3) 02/21/18 07:30 Creat Clearance w eGFR 57.41 (>60) 02/20/18 23:30 Random Glucose 92 mg/dl (74-106) 02/21/18 07:30 Calcium 8.7 mg/dl (8.4-10.2) 02/21/18 07:30 Total Bilirubin 0.7 mg/dl (0.2-1.0) 02/20/18 23:30 AST 15 U/L (10-42) D 02/20/18 23:30 ALT 11 U/L (10-40) D 02/20/18 23:30 Alkaline Phosphatase 75 U/L (32-92) 02/20/18 23:30 Total Protein 6.5 g/dl (6.4-8.3) 02/20/18 23:30 Albumin 3.4 g/dl (3.5-5.0) L 02/20/18 23:30 CARDIAC ENZYMES Creatine Kinase 58 IU/L (39-308) 02/20/18 23:30 Troponin I < 0.03 ng/ml (0.00-0.06) D 02/21/18 07:30 Microbiology 02/20/18 23:46 Urine - Urine Clean Catch Urine Culture - Final NO GROWTH OBTAINED Assessment: This is an 87 year old male with PMHx of CAD, CABG x5 (1991 and 2010 ), A.fib (on xarelto), HTN, who presented to [facility] ED with chest pain after returning from a 9 hour car ride. Plan: 1) Chest pain, CAD - Trop x2 negative - ECHO: normal LVEF, severe mitral regurg, mod TR, left atrium is severely dilated, right atrium is severely dilated. RVSP elevated - Stress test: moderately sized moderate intensity posterior lateral reversible perfusion defect consistent with ischemia. Normal EF - Continue ASA - Continue Lipitor - For possible transfer for cardiac cath today - Discussed with Dr. Valenzuela 2) A.fib - Started on Lovenox per cardiology - Continue bblocker 3) HTN - Continue Metoprolol - Continue Losartan 4) F/E/N: - NPO, for possible cardiac cath today - Monitor electrolytes 5) Prophylaxis: - Lovenox 70mg sq bid 6) Dispo: - For possible transfer today CODE STATUS: FULL CODE Visit type - Emergency Visit Emergency Visit: Yes ED Registration Date: 02/21/18 Care time: The patient presented to the Emergency Department on the above date and was hospitalized for further evaluation of their emergent condition. - New Patient This patient is new to me today: Yes Date on this admission: 02/22/18 - Critical Care Critical Care patient: No
[2018-02-22] MEDS ORDERED: metoPROLOL SUCCINATE 25 MG TAB.SR.24H (FP) PO SCH (10:00)
[2018-02-22] MEDS ORDERED: ENOXAPARIN NA (PORCINE) 80 MG/0.8 ML DISP.SYRIN SQ SCH (10:00)
--- NOTE | 2018-02-22 10:08 | PN ---
Progress Note, Physician Chief Complaint: Pt A&IOx3; no chest pain or dyspnea; has many questions about his present status (his , present today, says he is "always thinking the worst of any situation'). History of Present Illness: This is an 87-year-old white male who comes in complaining of left arm pain and posterior chest pain. Patient denies any associated symptoms of shortness of breath, nausea, diaphoresis. Patient does have a history of coronary artery disease, hypertension, high cholesterol. Patient has had bypass surgery 2 in the past. Prior to the last time he had the surgery he was experiencing significant chest pain that was different than this time. Patient also has a history of atrial fibrillation and is on xaralto for an anticoagulant. PAST MEDICAL HISTORY: Significant history of coronary artery disease with multiple is factors PAST SURGICAL HISTORY: Coronary artery bypass surgery - Current Medication List Current Medications: Active Medications Aspirin (Asa -) 81 mg PO DAILY [facility] Last Admin: 02/22/18 09:32 Dose: Not Given Atorvastatin Calcium (Lipitor -) 40 mg PO HS [facility] Last Admin: 02/21/18 21:39 Dose: 40 mg Enoxaparin Sodium (Lovenox -) 70 mg SQ BID [facility] Last Admin: 02/22/18 09:32 Dose: 70 mg Losartan Potassium (Cozaar -) 25 mg PO DAILY [facility] Last Admin: 02/22/18 09:31 Dose: 25 mg Metoprolol Succinate (Toprol Xl -) 25 mg PO DAILY [facility] Last Admin: 02/22/18 09:31 Dose: 25 mg Ranitidine HCl (Zantac -) 150 mg PO BID [facility] Last Admin: 02/22/18 09:31 Dose: 150 mg - Objective Vital Signs: Vital Signs Temperature 98.4 F 02/22/18 08:35 Pulse Rate 72 02/22/18 08:35 Respiratory Rate 18 02/22/18 06:00 Blood Pressure 147/82 02/22/18 08:35 O2 Sat by Pulse Oximetry (%) 99 02/22/18 01:00 Constitutional: Yes: Anxious Eyes: Yes: WNL HENT: Yes: WNL Neck: Yes: WNL Cardiovascular: Yes: WNL, Murmur (2/6 DORIS, RSB-->apex), S1, S2, S4 Respiratory: Yes: WNL Gastrointestinal: Yes: Soft ...Rectal Exam: Yes: Deferred Genitourinary: No: Anuria Musculoskeletal: Yes: WNL Extremities: Yes: WNL Edema: No Neurological: Yes: WNL Psychiatric: Yes: WNL Labs: CBC, BMP 02/21/18 07:30 02/21/18 07:30 - ....Imaging Chest X-ray: Image Reviewed (no acute pathology) Ultrasound: Report Reviewed (ECHO: normal LVEF) Problem List - Problems (1) Hyperlipidemia Assessment/Plan: on atorvastatin 40 mg daily. Code(s): E78.5 - HYPERLIPIDEMIA, UNSPECIFIED Qualifiers: Hyperlipidemia type: Pure hypercholesterolemia (2) Hypertensive cardiovascular disease Code(s): I11.9 - HYPERTENSIVE HEART DISEASE WITHOUT HEART FAILURE Qualifiers: Heart failure presence: without heart failure Qualified Code(s): I11.9 - Hypertensive heart disease without heart failure (3) Persistent atrial fibrillation Assessment/Plan: on metroprolol ER. On Lovenox pending coronary angiogram; PO med for anticoagulation post-cath. Code(s): I48.1 - PERSISTENT ATRIAL FIBRILLATION (4) S/P CABG (coronary artery bypass graft) Assessment/Plan: Stress MIBI yesterday: moderate ischemia of posterolateral wall; preserved LVEF ; poor exercise functional capacity. I discussed pt with his cardioologist at [facility] (Dr. Dennis Lara), who will arrange transfer for pt to that institution for coronary angiogram. Code(s): Z95.1 - PRESENCE OF AORTOCORONARY BYPASS GRAFT (5) Mitral regurgitation and aortic stenosis Assessment/Plan: ECHO: normal LVEF: severe MR; moderate For coronary angiogram (+ stress MIBI); f/u valve evaluation. Code(s): I08.0 - RHEUMATIC DISORDERS OF BOTH MITRAL AND AORTIC VALVES
--- NOTE | 2018-02-22 13:03 | DS ---
Physical Examination Vital Signs: Vital Signs Temperature 98.4 F 02/22/18 08:35 Pulse Rate 72 02/22/18 08:35 Respiratory Rate 18 02/22/18 06:00 Blood Pressure 147/82 02/22/18 08:35 O2 Sat by Pulse Oximetry (%) 99 02/22/18 01:00 Labs: CBC, BMP 02/21/18 07:30 02/21/18 07:30 Discharge Summary Reason For Visit: PAIN IN LEFT ARM AND BACK Current Active Problems Chest pain (Acute) Condition: Stable - Instructions Diet, Activity, Other Instructions: You are being transferred to [facility] for a cardiac catheterization. Referrals: Cruz Bradley MD [Staff Physician] - 1 Week Davie Valenzuela MD [Staff Physician] - (Please follow-up with your bag shop worker as directed after your cardiac catheterization.) Disposition: TRANSFER ACUTE CARE/OTHER HOSP - Home Medications Comprehensive Discharge Medication List: Ambulatory Orders Atorvastatin Ca [Lipitor] 40 mg PO DAILY 10/20/14 Losartan Potassium [Cozaar -] 25 mg PO DAILY #30 tablet 02/29/16 Metoprolol Succinate [Toprol XL -] 25 mg PO DAILY #30 tab.sr.24h 02/29/16 Aspirin [ASA -] 81 mg PO DAILY tab.chew 02/22/18 Enoxaparin [Lovenox -] 70 mg SQ BID #0 disp.syrin 02/22/18 Famotidine [Pepcid -] 20 mg PO BID tablet 02/22/18
[2018-02-22 13:16] VITALS: BP 98/86; PULSE 74
== END 2018-02-22 15:22 | disposition short-term general hospital (02) ==
LOC: FER 23:06 → FM/S 02-21 00:31 → UNDOADMOB 02-21 00:55 → J2W 02-21 17:17
PROVIDERS: ADMIT Internal Medicine; ATTEND Registered Nurse
PROC: 3E013GC Introduction of Other Therapeutic Substance into Subcutaneous Tissue, Percutaneous Approach (ICD-10-PCS; principal; 2018-02-21)
DX: R07.9 Chest pain, unspecified (principal); I10 Essential (primary) hypertension; I25.10 Atherosclerotic heart disease of native coronary artery without angina pectoris; I48.1 Persistent atrial fibrillation; I11.9 Hypertensive heart disease without heart failure; I08.0 Rheumatic disorders of both mitral and aortic valves; E78.5 Hyperlipidemia, unspecified; Z87.891 Personal history of nicotine dependence; Z79.01 Long term (current) use of anticoagulants; Z95.1 Presence of aortocoronary bypass graft; Z82.49 Family history of ischemic heart disease and other diseases of the circulatory system
CPT/HCPCS: 36415; 71046-TC-FY; 78452-TC; 80048; 80053; 80061; 81003; 82550; 83036; 83735; 84100; 84484; 85025; 87086; 93005; 93017; 93306-TC; 96372; 99283-25; A9502; G0378

== ENCOUNTER 2018-10-27 12:28 | Emergency (ER) | payer OTHER ==
--- NOTE | 2018-10-27 12:32 | PDOC ---
History of Present Illness - General Chief Complaint: Pain Stated Complaint: POST OP BLEEDING Time Seen by Provider: 10/27/18 12:32 - History of Present Illness Initial Comments: 10/27/18 12:32 Mr. Fagan is an 88 yo male w/ pmh of CAD w/ CABGx2, HTN, HLD, afib (on xarelto ) w/ recent inguinal hernia repair approximately 2 1/2 weeks ago who presents for evaluation of bleeding from op-site this morning. Patient reports he has had swelling at site for the last 2 weeks and was evaluated at his 2 week post- op appointment on with no difficulty. Was told swelling may remain for up to a month. Presents today as noted blood draining from op site this morning. Denies any other complaints at this time. The patient denies chest pain, shortness of breath, headache and dizziness. Denies fever, chills, nausea, vomit, diarrhea and constipation. Denies dysuria, frequency, urgency and hematuria. Past History - Past Medical History Allergies/Adverse Reactions: Allergies Allergy/AdvReac Type Severity Reaction Status Date / Time No Known Allergies Allergy Verified 10/27/18 12:30 Home Medications: Ambulatory Orders Atorvastatin Ca [Lipitor] 80 mg PO DAILY 10/20/14 Losartan Potassium [Cozaar -] 25 mg PO DAILY #30 tablet 02/29/16 Metoprolol Succinate [Toprol XL -] 25 mg PO DAILY #30 tab.sr.24h 02/29/16 Aspirin [ASA -] 81 mg PO DAILY tab.chew 02/22/18 Rivaroxaban [Xarelto -] 10 mg PO DAILY 10/27/18 Anemia: No Asthma: No Cancer: No Cardiac Disorders: Yes (HX CAD) CVA: No COPD: No CHF: No Dementia: No Diabetes: No GI Disorders: Yes (4-5 YRS AGO ULCER FROM ASPIRIN-HEALED AFTER STOPPING ASPIRIN) Disorders: No HTN: Yes Hypercholesterolemia: Yes Liver Disease: No Seizures: No Thyroid Disease: No - Surgical History Abdominal Surgery: No Appendectomy: No Cardiac Surgery: Yes (20 YRS. CABG X 5, 2010 CABG X 3 OR 4-CAN'T REMEMBER) Cholecystectomy: No Lung Surgery: No Neurologic Surgery: No Orthopedic Surgery: No - Immunization History Immunization Up to Date: Yes - Suicide/Smoking/Psychosocial Hx Smoking History: Former smoker Have you smoked in the past 12 months: No If you are a former smoker, when did you quit?: 30 YRS AGO Hx Alcohol Use: No Drug/Substance Use Hx: No Substance Use Type: Alcohol Hx Substance Use Treatment: No Review of Systems - Review of Systems Comments:: 10/27/18 12:33 GENERAL/CONSTITUTIONAL: No fever or chills. No weakness. HEAD, EYES, EARS, NOSE AND THROAT: No change in vision. No ear pain or discharge. No sore throat. CARDIOVASCULAR: No chest pain or shortness of breath RESPIRATORY: No cough, wheezing, or hemoptysis. GASTROINTESTINAL: No nausea, vomiting, diarrhea or constipation. GENITOURINARY: +Right inguinal swelling/bleeding as described. No dysuria, frequency, or change in urination. MUSCULOSKELETAL: No joint or muscle swelling or pain. No neck or back pain. SKIN: No rash NEUROLOGIC: No headache, vertigo, loss of consciousness, or change in strength/ sensation. ENDOCRINE: No increased thirst. No abnormal weight change HEMATOLOGIC/LYMPHATIC: No anemia, easy bleeding, or history of blood clots. ALLERGIC/IMMUNOLOGIC: No hives or skin allergy. *Physical Exam - Physical Exam Comments: 10/27/18 12:33 GENERAL: Awake, alert, and fully oriented, in no acute distress HEAD: No signs of trauma, normocephalic, atraumatic EYES: PERRLA, EOMI, sclera anicteric, conjunctiva clear ENT: Auricles normal inspection, hearing grossly normal, nares patent, oropharynx clear without exudates. Moist mucosa NECK: Normal ROM, supple, no lymphadenopathy, JVD, or masses LUNGS: No distress, speaks full sentences, clear to auscultation bilaterally HEART: Regular rate and rhythm, normal S1 and S2, no murmurs, rubs or gallops, peripheral pulses normal and equal bilaterally. ABDOMEN: +R inguinal hematoma at op site approximately 10cm across. Incision well appearing with no erythema; blood slowly draining from point location in middle. Soft, nontender, normoactive bowel sounds. No guarding, no rebound. No masses EXTREMITIES: Normal inspection, Normal range of motion, no edema. No clubbing or cyanosis. NEUROLOGICAL: Cranial nerves II through XII grossly intact. Normal speech, normal gait, no focal sensorimotor deficits SKIN: Warm, Dry, normal turgor, no rashes or lesions noted. Medical Decision Making - Medical Decision Making 10/27/18 13:10 Mr. Fagan is an 88 yo male w/ pmh as described who presents for evaluation of bleeding hematoma from post-op site. Patient well appearing and reports hematoma has been stable. Incision site non-erythematous and patient denies any constitutional symptoms which would indicate infection or other systemic process. Patient surgeon paged for consultation. 10/27/18 13:25 Discharging patient to home. Will update surgeon upon callback. Patient instructed to f/u on Monday when office opens for further instructions. 10/27/18 13:37 Discussed with covering physician who recommended f/u on Monday in office as expected. *DC/Admit/Observation/Transfer Diagnosis at time of Disposition: Post-op bleeding Qualifiers: Surgical complication system/body Area: skin Procedure type: non-dermatologic Qualified Code(s): L76.22 - Postprocedural hemorrhage of skin and subcutaneous tissue following other procedure - Discharge Dispostion Disposition: HOME - Referrals - Patient Instructions Printed Discharge Instructions: DI for Post-Surgical Bleeding Additional Instructions: You were evaluated today in the ER for your bleeding. We have contacted your surgeon and will update him on your status. Please follow-up first thing on Monday with surgeon's office for further instructions. Return to ER if any change in character of bleeding, fever, chills, or other concerning symptoms. - Post Discharge Activity
[2018-10-27 12:59] VITALS: BP 141/63; PULSE 78; TEMP 98.1; BMI 20.2
--- NOTE | 2018-10-27 13:14 | PDOC ---
Attending Attestation - Resident Resident Name: Valentino Null - ED Attending Attestation I have performed the following: I have examined & evaluated the patient, The case was reviewed & discussed with the resident, I agree w/resident's findings & plan, Exceptions are as noted - HPI HPI: 10/27/18 13:09 88 yo male CAD w/ CABGx2, HTN, HLD, afib (on xarelto) w/ recent inguinal hernia repair 2 weks ago, noted to have a post op hematoma following surgery, here today because it is now draining dark fluid . pt was seen by his surgeon 2 days ago. no f/c no new pain. not feeling lightheaded or dizzy. pt is on xarelto. no cp no sob. no o ther complaints. overall size of hematoma hasn't change per pt and his . - Physicial Exam PE: 10/27/18 13:12 on exam pt awake alert heart irreg reg. no appreciated m/r/g. abd soft nt nd. ext wwp. right groin with golf ball sized noted hematoma. inferior aspect of incision draining dark, clotted old blood. no bright red blood. expressable further old hematoma blood. no pus. no erythema appropriately tender post op. incision otherwise cdi. - Medical Decision Making 10/27/18 13:13 pt with old hematoma at inguinal hernia site. draining now to skin. due to fact incision 2 weeks old, no stitch placed due to risk of infection. expressed several cc old clotted dark blood. told pt to soak warm water daily. apply pressure dressing. for fever, bright red blood or change to skin told to come back immediately. will see surgeon next week. 10/27/18 13:14 pt primary surgeon, awaiting call back.
== END 2018-10-27 13:47 | disposition home or self-care (01) ==
LOC: FER 12:28
DX: L76.22 Postprocedural hemorrhage of skin and subcutaneous tissue following other procedure (principal); Y83.8 Other surgical procedures as the cause of abnormal reaction of the patient, or of later complication, without mention of misadventure at the time of the procedure; I10 Essential (primary) hypertension; E78.5 Hyperlipidemia, unspecified; I25.10 Atherosclerotic heart disease of native coronary artery without angina pectoris; Z95.1 Presence of aortocoronary bypass graft; Z79.01 Long term (current) use of anticoagulants
CPT/HCPCS: 99281-25

== ENCOUNTER 2018-11-12 08:48 | Observation (INO) | payer OTHER ==
--- NOTE | 2018-11-12 08:57 | PDOC ---
History of Present Illness - General Chief Complaint: Lightheaded Stated Complaint: DIZZY Time Seen by Provider: 11/12/18 08:50 - History of Present Illness Initial Comments: 11/12/18 08:50 88yo M hx CAD s/p CABGx2, HTN, HLD, afib (on xarelto) presents to the ED with dizziness and feeling like he will pass out. Past History - Past Medical History Allergies/Adverse Reactions: Allergies Allergy/AdvReac Type Severity Reaction Status Date / Time No Known Allergies Allergy Verified 10/27/18 12:30 Home Medications: Ambulatory Orders Atorvastatin Ca [Lipitor] 80 mg PO DAILY 10/20/14 Losartan Potassium [Cozaar -] 25 mg PO DAILY #30 tablet 02/29/16 Metoprolol Succinate [Toprol XL -] 25 mg PO DAILY #30 tab.sr.24h 02/29/16 Aspirin [ASA -] 81 mg PO DAILY tab.chew 02/22/18 Rivaroxaban [Xarelto -] 10 mg PO DAILY 10/27/18 Anemia: No Asthma: No Cancer: No Cardiac Disorders: Yes (HX CAD) CVA: No COPD: No CHF: No Dementia: No Diabetes: No GI Disorders: Yes (4-5 YRS AGO ULCER FROM ASPIRIN-HEALED AFTER STOPPING ASPIRIN) Disorders: No HTN: Yes Hypercholesterolemia: Yes Liver Disease: No Seizures: No Thyroid Disease: No - Surgical History Abdominal Surgery: No Appendectomy: No Cardiac Surgery: Yes (20 YRS. CABG X 5, 2010 CABG X 3 OR 4-CAN'T REMEMBER) Cholecystectomy: No Lung Surgery: No Neurologic Surgery: No Orthopedic Surgery: No - Immunization History Immunization Up to Date: Yes - Suicide/Smoking/Psychosocial Hx Smoking History: Former smoker Have you smoked in the past 12 months: No If you are a former smoker, when did you quit?: 30 YRS AGO Hx Alcohol Use: No Drug/Substance Use Hx: No Substance Use Type: Alcohol Hx Substance Use Treatment: No
--- NOTE | 2018-11-12 09:04 | PDOC ---
History of Present Illness - General Chief Complaint: Lightheaded Stated Complaint: DIZZY Time Seen by Provider: 11/12/18 08:50 History Source: Patient Exam Limitations: No Limitations - History of Present Illness Initial Comments: Pt is an 88 yo M, with PMH of CAD (CABG, multiple), HTN, HLD, A-fib (on xarelto) , valve replacements (aortic? in 2018), who is presenting with complaints of light-headedness since 7:30 am this morning. Pt states when he attempted to stand up, he felt light-headed and that he may fall over. He went to lie down, and the symptoms resolved for a few minutes. When he attempted to stand again, the symptoms returned. Pt also states he felt his "heart starting to race," so he took one tablet of NG to "try to control his heart rate". He was able to walk to the bathroom throughout the night with no difficulty. Pt denies any recent fevers/chills, headache, vision changes, syncope, chest pain, palpitations, SOB, nausea/vomiting, abdominal pain, urinary symptoms, diarrhea/ constipation, or leg swelling. Recent abx use (doxycycline, started 11/09/17) over concern for possible aspiration of blood from posterior nose bleeds. His cough has since resolved. Orthostatics done by EMS were normal, BGM 98. PCP: Dr. Scott Brick Tosser: Dr. Dennis Lara ([facility]) Social: Pt denies any cigarette, alcohol, or drug use. Pt denies any recent travel or sick contacts. Surgical: CABG, valve replacement, inguinal hernia repair (January 2018). Family: no relevant history. 11/12/18 09:57 Past History - Travel Traveled outside of the country in the last 30 days: No Close contact w/someone who was outside of country & ill: No - Past Medical History Allergies/Adverse Reactions: Allergies Allergy/AdvReac Type Severity Reaction Status Date / Time No Known Allergies Allergy Verified 11/12/18 08:54 Home Medications: Ambulatory Orders Atorvastatin Ca [Lipitor] 80 mg PO DAILY 10/20/14 Losartan Potassium [Cozaar -] 25 mg PO DAILY #30 tablet 02/29/16 Metoprolol Succinate [Toprol XL -] 25 mg PO DAILY #30 tab.sr.24h 02/29/16 Aspirin [ASA -] 81 mg PO DAILY tab.chew 02/22/18 Rivaroxaban [Xarelto -] 10 mg PO DAILY 10/27/18 Doxycycline Hyclate 100 mg PO BID 11/12/18 Anemia: No Asthma: No Cancer: No Cardiac Disorders: Yes (HX CAD) CVA: No COPD: No CHF: No Dementia: No Diabetes: No GI Disorders: Yes (4-5 YRS AGO ULCER FROM ASPIRIN-HEALED AFTER STOPPING ASPIRIN) Disorders: No HTN: Yes Hypercholesterolemia: Yes Liver Disease: No Seizures: No Thyroid Disease: No - Surgical History Abdominal Surgery: No Appendectomy: No Cardiac Surgery: Yes (20 YRS. CABG X 5, 2010 CABG X 3 OR 4-CAN'T REMEMBER) Cholecystectomy: No Lung Surgery: No Neurologic Surgery: No Orthopedic Surgery: No - Immunization History Immunization Up to Date: Yes - Suicide/Smoking/Psychosocial Hx Smoking History: Former smoker Have you smoked in the past 12 months: No If you are a former smoker, when did you quit?: 30 YRS AGO Hx Alcohol Use: No Drug/Substance Use Hx: No Substance Use Type: Alcohol Hx Substance Use Treatment: No Review of Systems - Review of Systems Able to Perform ROS?: Yes Is the patient limited Somali proficient: No Constitutional: Yes: Weight Stable. No: Chills, Diaphoresis, Fever, Loss of Appetite, Malaise, Weakness HEENTM: Yes: See HPI, Nose Bleeding. No: Blurred Vision, Recent change in vision, Double Vision, Ear Pain, Nose Congestion, Hearing Loss, Throat Pain, Throat Swelling, Difficulty Swallowing Respiratory: Yes: See HPI, Cough. No: Orthopnea, Shortness of Breath, Wheezing , Productive cough, Hemoptysis Cardiac (ROS): Yes: Irregular Heart Rate, Lightheadedness, Palpitations. No: Chest Pain, Edema, Syncope, Chest Tightness ABD/GI: No: Constipated, Diarrhea, Nausea, Poor Appetite, Poor Fluid Intake, Rectal Bleeding, Vomiting, Indigestion : No: Burning, Dysuria, Pain, Urgency Musculoskeletal: No: Back Pain, Joint Pain, Muscle Pain, Muscle Weakness Integumentary: No: Rash Neurological: Yes: Unsteady Gait. No: Headache, Numbness, Paresthesia, Seizure , Weakness, Ataxia, Dizziness Psychiatric: No: Sleep Pattern Change, Change in Appetite Endocrine: No: Increased Urine, Change in Weight Hematologic/Lymphatic: No: Anemia, Blood Clots, Easy Bleeding, Easy Bruising All Other Systems: Reviewed and Negative *Physical Exam - Vital Signs 11/12/18 09:51 Vital Signs Temperature 97.6 F 11/12/18 08:49 Pulse Rate 77 11/12/18 08:49 Respiratory Rate 20 11/12/18 08:49 Blood Pressure 163/81 11/12/18 08:49 O2 Sat by Pulse Oximetry (%) 99 11/12/18 08:49 - Physical Exam Comments: HTN 163/81, in a-fib but rate controlled in 60s, pt afebrile. Pt in NAD, thin body habitus. PE showed pt alert and oriented. 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 Eyes PERRLA, EOMI. Oropharynx without erythema or exudates, no LAD b/l. Dry oral mucosa, decreased skin turgor. No nasal congestion, hearing intact. Significant blowing systolic murmur, loudest over apex/mitral and atrial areas. No JVD, no b/l pedal edema. Clear lung sounds, no respiratory distress, wheezes, crackles, or accessory muscle use. No abdominal or CVA tenderness to palpation, no rebound, no guarding. Abdomen soft, non- distended, and with normoactive bowel sounds. Skin without jaundice or rash. 11/12/18 09:51 ED Treatment Course - LABORATORY CBC & Chemistry Diagram: 11/12/18 02:04 11/12/18 09:32 Medical Decision Making - Medical Decision Making Pt was seen at bedside, also will be seen by attending Dr. Mukherjee. Pt presenting with complaints of light-headedness since 7:30 am this morning. Pt states when he attempted to stand up, he felt light-headed and that he may fall over. He went to lie down, and the symptoms resolved for a few minutes. When he attempted to stand again, the symptoms returned. Pt also states he felt his "heart starting to race," so he took one tablet of NG to "try to control his heart rate". He was able to walk to the bathroom throughout the night with no difficulty. Pt denies any recent fevers/chills, headache, vision changes, syncope, chest pain, palpitations, SOB, nausea/vomiting, abdominal pain, urinary symptoms, diarrhea/constipation, or leg swelling. Recent abx use (doxycycline, started 11/09) over concern for possible aspiration of blood from posterior nose bleeds. His cough has since resolved. Orthostatics done by EMS were normal, BGM 98. HTN 163/81, in a-fib but rate controlled in 60s, pt afebrile. Pt in NAD, thin body habitus. PE showed pt alert and oriented. 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 Eyes PERRLA, EOMI. Oropharynx without erythema or exudates, no LAD b/l. Dry oral mucosa, decreased skin turgor. No nasal congestion, hearing intact. Significant blowing systolic murmur, loudest over apex/mitral and atrial areas. No JVD, no b/l pedal edema. Clear lung sounds, no respiratory distress, wheezes, crackles, or accessory muscle use. No abdominal or CVA tenderness to palpation, no rebound, no guarding. Abdomen soft, non- distended, and with normoactive bowel sounds. Skin without jaundice or rash. Considering cardiac (ACS vs HF) vs infectious (UTI, pneumonia) vs vascular (CVA/ posterior stroke vs bleed) vs medication overdose vs orthostatic hypotension Ordered work-up including CBC, CMP, Mg, cardiac profile, BNP, UA, urine culture , ECG, chest x-ray, non-contrast head CT. No interventions provided at this time. Pt stable and comfortable. Will continue to reassess pt and monitor for symptomatic improvement. ECG: Atrial fibrillation, rate controlled HR 68. No TWIs or significant ST segment changes. No significant changes from prior ECG. 11/12/18 09:39 Chest x-ray shows some cephalization, but no significant infiltrates. Heart does not appear to be enlarged. Pt taken for CT scan. 11/12/18 09:45 CT head Impression: Moderate atrophy and mild periventricular chronic microvascular ischemic disease changes. No gross evidence of a focal intracranial lesion or hemorrhage is seen. Sphenoid chronic sinusitis Calcification of the cavernous carotid arteries. 11/12/18 10:06 CBC: mild anemia compared to prior (H/H 10.9/34.0) CMP: Na 134, otherwise WNL; Mg 1.8 11/12/18 10:08 INR 1.38, PT 15.4 11/12/18 10:11 Trop <.03 Hospitalist team paged for admission. 11/12/18 10:54 Hospitalist team accepted pt for admission. Pt lying comfortably. 11/12/18 11:48 *DC/Admit/Observation/Transfer Diagnosis at time of Disposition: Light-headed, Pre-syncope, Palpitations Anemia Qualifiers: Anemia type: unspecified type Qualified Code(s): D64.9 - Anemia, unspecified - Discharge Dispostion Condition at time of disposition: Stable Decision to Admit order: Yes - Referrals - Patient Instructions - Post Discharge Activity
[2018-11-12 09:14] VITALS: BMI 21.7
[2018-11-12 10:01] LABS: ACTIVATED PTT 31.4 SECONDS (25.2-36.5); BASO % 0.8 % (0-2.0); EOS % 6.5 % (0-4.5); HEMOGLOBIN 10.9 GM/dl (11.7-16.9); LYMPH % 16.4 % (8-40); MEAN CELL VOLUME 81.2 fl (80-96); MEAN PLT VOLUME 9.4 fl (7.5-11.1); MONO % 7.4 % (3.8-10.2); NEUT % 68.9 % (42.8-82.8); PLATELET COUNT 180 K/MM3 (134-434); RBC 4.19 M/mm3 (4.00-5.60); RDW 17.9 % (11.9-15.9); WHITE BLOOD COUNT 7.8 K/mm3 (4.0-10.8)
[2018-11-12 10:01] LABS: MAGNESIUM 1.8 mg/dL (1.8-2.4)
[2018-11-12 10:02] LABS: ALBUMIN 3.2 g/dl (3.4-5.0); ALK PHOS 115 U/L (45-117); ANION GAP 9 MMOL/L (8-16); BLOOD UREA NITROGEN 18 mg/dl (7-18); CALCIUM 8.5 mg/dl (8.5-10); CHLORIDE 101 mmol/L (98-107); CO2 24 mmol/L (21-32); GLUCOSE,RANDOM 91 mg/dl (74-106); POTASSIUM 3.7 mmol/L (3.5-5.1); SGOT/AST 18 U/L (15-37); SGPT/ALT 14 U/L (13-61); SODIUM 134 mmol/L (136-145); TOT PROT 6.6 g/dl (6.4-8.2)
[2018-11-12 10:06] LABS: INR 1.38 (0.82-1.09); PROTHROMBIN TIME (PATIENT) 15.4 SEC (10.2-13.0)
--- NOTE | 2018-11-12 11:47 | HP ---
CHIEF COMPLAINT: Lightheadedness PCP: Dr. Mcdaniel Director Of Social Media Marketing: Dr. Dennis Lara, [place] HISTORY OF PRESENT ILLNESS: 88 year-old male with a PMH significant for HTN, HLD, CAD s/p CABG, afib on Xarelto, TAVR, and gastric ulcer secondary to aspirin use. Patient awoke this morning at about 7:30am. When he stood up out of bed he felt lightheaded, like he might fall over. He also felt his heart beating rapidly. He laid back down in bed and the symptoms subsided. About 5 minutes later he stood and again experienced the same symptoms. He was able to walk to the bathroom with the assistance of his , urinated, and returned to bed. He took a nitroglycerin pill. Patient was aware that his mouth was very dry when he awoke this morning, like he had "cotton" in his mouth. Patient denies chest pain, diaphoresis, SOB, HOR[place]ITZ, orthopnea, or lower extremity edema. He denies fever, sweats, chills. Denies nausea, vomiting, diarrhea. He was recently taken off aspirin for blood- streaked sputum secondary to cough for which patient has been taking doxycycline. ER course was notable for: (1) Troponin neg x 1 (2) ECG: (3) CXR unremarkable (4) CT head: no acute findings; chronic sinusitis Recent Travel: No PAST MEDICAL HISTORY: Hypertension Hyperlipidemia Coronary artery disease Atrial fibrillation Gastric ulcer PAST SURGICAL HISTORY: CABG x 2 surgeries (Dr. Jasper Marino, [place]) TAVR (06/2018, Dr. Forrest Campbell, [place]) Inguinal hernia repair (09/2018, Dr. Darnell Graves, [place]) Social History: Smoking: quit 30 years ago Alcohol: no Drugs: no Family History: Allergies No Known Allergies Allergy (Verified 11/12/18 08:54) HOME MEDICATIONS: Home Medications Medication Instructions Recorded Atorvastatin Ca [Lipitor] 80 mg PO DAILY 10/20/14 Losartan Potassium [Cozaar -] 25 mg PO DAILY #30 tablet 02/29/16 Metoprolol Succinate [Toprol XL -] 25 mg PO DAILY #30 tab.sr.24h 02/29/16 Aspirin [ASA -] 81 mg PO DAILY tab.chew 02/22/18 Rivaroxaban [Xarelto -] 10 mg PO DAILY 02/02/19 Doxycycline Hyclate 100 mg PO BID 11/12/18 REVIEW OF SYSTEMS CONSTITUTIONAL: Absent: fever, chills, diaphoresis, generalized weakness, malaise, loss of appetite, weight change HEENT: Absent: rhinorrhea, nasal congestion, throat pain, throat swelling, difficulty swallowing, mouth swelling, ear pain, eye pain, visual changes CARDIOVASCULAR: +lightheadedness, palpitations Absent: chest pain, syncope, palpitations, irregular heart rate, lightheadedness , peripheral edema RESPIRATORY: Absent: cough, shortness of breath, dyspnea with exertion, orthopnea, wheezing, stridor, hemoptysis GASTROINTESTINAL: Absent: abdominal pain, abdominal distension, nausea, vomiting, diarrhea, constipation, melena, hematochezia GENITOURINARY: Absent: dysuria, frequency, urgency, hesitancy, hematuria, flank pain, genital pain MUSCULOSKELETAL: Absent: myalgia, arthralgia, joint swelling, back pain, neck pain SKIN: Absent: rash, itching, pallor HEMATOLOGIC/IMMUNOLOGIC: Absent: easy bleeding, easy bruising, lymphadenopathy, frequent infections ENDOCRINE: Absent: unexplained weight gain, unexplained weight loss, heat intolerance, cold intolerance NEUROLOGIC: Absent: headache, focal weakness or paresthesias, dizziness, unsteady gait, seizure, mental status changes, bladder or bowel incontinence PSYCHIATRIC: Absent: anxiety, depression, suicidal or homicidal ideation, hallucinations. PHYSICAL EXAMINATION Vital Signs - 24 hr 11/12/18 08:49 Temperature 97.6 F Pulse Rate 77 Respiratory 20 Rate Blood Pressure 163/81 O2 Sat by Pulse 99 Oximetry (%) GENERAL: Awake, alert, and fully oriented, in no acute distress. HEAD: Normal with no signs of trauma. EYES: Pupils equal, round and reactive to light, extraocular movements intact, sclera anicteric, conjunctiva clear. No lid lag. EARS, NOSE, THROAT: Ears normal, nares patent, oropharynx clear without exudates. Dry mucous membranes. NECK: Normal range of motion, supple without lymphadenopathy, JVD, or masses. LUNGS: Breath sounds equal, clear to auscultation bilaterally. No wheezes, and no crackles. No accessory muscle use. HEART: Irregular rhythm, S1 and S2 ABDOMEN: Soft, nontender, not distended, normoactive bowel sounds, no guarding, no rebound, no masses. No hepatomegaly or splenomegaly. MUSCULOSKELETAL: Normal range of motion at all joints. No bony deformities or tenderness. No CVA tenderness. UPPER EXTREMITIES: 2+ pulses, warm, well-perfused. No cyanosis. No clubbing. No peripheral edema. LOWER EXTREMITIES: 2+ pulses, warm, well-perfused. No calf tenderness. No peripheral edema. NEUROLOGICAL: Cranial nerves II-XII intact. Normal speech. Laboratory Results - last 24 hr 11/12/18 11/12/18 11/12/18 02:04 02:04 09:32 WBC 7.8 RBC 4.19 Hgb 10.9 L Hct 34.0 L MCV 81.2 MCH 26.0 MCHC 32.0 RDW 17.9 H D Plt Count 180 D MPV 9.4 Absolute Neuts (auto) 5.3 Neutrophils % 68.9 Lymphocytes % 16.4 D Monocytes % 7.4 Eosinophils % 6.5 H Basophils % 0.8 PT with INR 15.4 H INR 1.38 H D PTT (Actin FS) 31.4 Sodium 134 L Potassium 3.7 Chloride 101 Carbon Dioxide 24 Anion Gap 9 BUN 18 Creatinine 1.0 Creat Clearance w eGFR > 60 Random Glucose 91 Calcium 8.5 Magnesium Total Bilirubin 1.0 AST 18 ALT 14 Alkaline Phosphatase 115 Creatine Kinase Troponin I Total Protein 6.6 Albumin 3.2 L 11/12/18 11/12/18 09:32 09:32 WBC RBC Hgb Hct MCV MCH MCHC RDW Plt Count MPV Absolute Neuts (auto) Neutrophils % Lymphocytes % Monocytes % Eosinophils % Basophils % PT with INR INR PTT (Actin FS) Sodium Potassium Chloride Carbon Dioxide Anion Gap BUN Creatinine Creat Clearance w eGFR Random Glucose Calcium Magnesium 1.8 Total Bilirubin AST ALT Alkaline Phosphatase Creatine Kinase 34 Troponin I < 0.03 Total Protein Albumin ASSESSMENT/PLAN: US carotids repleted Mg and K telemetry cardiology Dr. Arriola
--- NOTE | 2018-11-12 11:50 | PDOC ---
Attending Attestation - Resident Resident Name: Sonia Bennett - ED Attending Attestation I have performed the following: I have examined & evaluated the patient, The case was reviewed & discussed with the resident, I agree w/resident's findings & plan, Exceptions are as noted - HPI HPI: 11/12/18 11:45 agree with resident HPI - Physicial Exam PE: 11/12/18 11:45 agree with resident exam - Medical Decision Making 11/12/18 11:45 88yo M hx CAD, CABG, Afib, AVR, MR presents to the ED with dizziness, pre- syncope, palpitations intermittently since this morning. Per EMS, orthostatics neg. Vitals wnl. Exam non focal, no neuro deficits. Concern for ischemia vs valvular dysfx vs arrhythmia vs infection vs metabolic abnormality. Labs unremarkable, CTH/CXR with no acute pathology, tele with no events. EKG w/o JOSEFA. Will admit pt for further mgmt/monitoring. Case discussed with JAMIE Patterson, pt admitted to Dr. Velez Case discussed in detail with admitting physician including history, physical exam and ancillary studies. Admitting physician has assumed care for the patient, will follow all pending diagnostics and will complete the evaluation and treatment.
[2018-11-12] MEDS ORDERED: MAGNESIUM SULF 50% (8.12 MEQ/2 ML-1 GM VIAL) IVPB ONE (11:51)
[2018-11-12] MEDS ORDERED: RIVAROXABAN 10 MG TABLET PO SCH (12:00)
[2018-11-12] MEDS ORDERED: metoPROLOL SUCCINATE 25 MG TAB.SR.24H (FP) PO SCH (12:00)
[2018-11-12] MEDS ORDERED: ASPIRIN 81 MG CHEWABLE TABLETS PO SCH (12:00)
[2018-11-12] MEDS ORDERED: LOSARTAN POTASSIUM 25 MG TABLET PO SCH (12:00)
[2018-11-12] MEDS ORDERED: ATORVASTATIN CA 80 MG TABLET (FP) PO SCH (12:00)
[2018-11-12] MEDS ORDERED: DOXYCYCLINE HYCLATE 100 MG CAPSULE PO ONE (12:04)
[2018-11-12] MEDS ORDERED: POTASSIUM CHLORIDE TABS 20 MEQ TABLET.ER (FP) PO ONE ×2 (12:04→13:00)
[2018-11-12] MEDS ORDERED: ATORVASTATIN CA 80 MG TABLET (FP) ONE (12:04)
[2018-11-12] MEDS ORDERED: MAGNESIUM SULF 50% (8.12 MEQ/2 ML-1 GM VIAL) ONE (12:05)
[2018-11-12] MEDS ORDERED: metoPROLOL SUCCINATE 25 MG TAB.SR.24H (FP) ONE (12:05)
[2018-11-12] MEDS ORDERED: MAGNESIUM 1GM/D5W - 1 GM/100 ML IVPB IVPB ONE ×2 (12:05→12:07)
[2018-11-12] MEDS ORDERED: ASPIRIN 81 MG CHEWABLE TABLETS ONE (12:05)
[2018-11-12 12:44] LABS: N-TERMINAL BNP 3554.2 pg/ml (5-450)
[2018-11-12 12:46] LABS: PH,URINE 5.5 (4.5-8); URINE APPEARANCE CLEAR; URINE BILIRUBIN NEGATIVE (NEGATIVE); URINE COLOR YELLOW; URINE GLUCOSE (UA) NEGATIVE (NEGATIVE); URINE KETONE NEGATIVE (NEGATIVE); URINE LEUK ESTERASE NEGATIVE (NEGATIVE); URINE NITRITE NEGATIVE (NEGATIVE); URINE PROTEIN NEGATIVE (NEGATIVE); URINE UROBILINOGEN 0.2 (0.2-1.0)
[2018-11-12 13:17] VITALS: TEMP 98.1
--- NOTE | 2018-11-12 16:20 | CON.CARD ---
Consult Consult Specialty:: Cardiology Referred by:: Hospitalist Medicine Reason for Consultation:: Near syncope - History of Present Illness Chief Complaint: Near syncope, palpitations History of Present Illness: This is an 88-year-old male history of CAD, CABG x 5 (1991 and 2010),s/p PCI ( details unknown) AFib (xarelto), severe s/p TAVR, severe MR not mitraclip candidate and hypertension presents with positional dizziness and pre-syncope, palpitations intermittently since this morning. Per EMS, orthostatics neg. Patient denies associated chest pain, dyspnea, true syncope, orthopnea, PND, diaphoresis, nausea, emesis or LE edema. He reports medication compliance, symptoms have since abated. PCP: Dr Mcdaniel Engineered Wood Designer: Dr Matty Lara - Past Medical History Cardio/Vascular: Yes: CAD, HTN - Past Surgical History Past Surgical History: Yes: CABG, Stent, Valve Replacement - Alcohol/Substance Use Hx Alcohol Use: No - Smoking History Smoking history: Former smoker Have you smoked in the past 12 months: No If you are a former smoker, when did you quit?: 30 YRS AGO Home Medications - Allergies Allergies/Adverse Reactions: Allergies Allergy/AdvReac Type Severity Reaction Status Date / Time No Known Allergies Allergy Verified 11/12/18 08:54 - Home Medications Home Medications: Ambulatory Orders Atorvastatin Ca [Lipitor] 80 mg PO DAILY 10/20/14 Losartan Potassium [Cozaar -] 25 mg PO DAILY #30 tablet 02/29/16 Metoprolol Succinate [Toprol XL -] 25 mg PO DAILY #30 tab.sr.24h 02/29/16 Aspirin [ASA -] 81 mg PO DAILY tab.chew 02/22/18 Rivaroxaban [Xarelto -] 10 mg PO DAILY 10/27/18 Doxycycline Hyclate 100 mg PO BID 11/12/18 Review of Systems - Review of Systems Cardiovascular: reports: Palpitations Neurological: reports: Dizziness Vital Signs: Vital Signs Temperature 98.1 F 11/12/18 13:15 Pulse Rate 89 11/12/18 13:15 Respiratory Rate 18 11/12/18 13:15 Blood Pressure 151/51 L 11/12/18 13:15 O2 Sat by Pulse Oximetry (%) 97 11/12/18 11:51 Constitutional: Yes: No Distress, Calm, Thin Neck: Yes: Supple Respiratory: Yes: Regular, CTA Bilaterally Gastrointestinal: Yes: Normal Bowel Sounds, Soft Cardiovascular: Yes: Pulse Irregular JVD: No Carotid Bruit: No Heart Sounds: Yes: S1, S2 Murmur: Yes: Systolic Murmur, Grade 2 Edema: No - Other Data Labs, Other Data: CBC, BMP 11/12/18 02:04 11/12/18 09:32 INR, PTT INR 1.38 (0.82-1.09) H D 11/12/18 02:04 Troponin, BNP 11/12/18 11/12/18 09:32 09:32 Troponin I < 0.03 B-Natriuretic Peptide 3554.2 H Troponin, BNP 11/12/18 11/12/18 09:32 09:32 Troponin I < 0.03 B-Natriuretic Peptide 3554.2 H Afib @ 69 Prior Cardiac Procedures: CABG, PTCA with Stent, Valve Surgery Imaging - Results Chest X-ray: Report Reviewed (NAD) Cat Scan: Report Reviewed (HCT: No acute changes) Problem List - Problems (1) Chronic anticoagulation Code(s): Z79.01 - 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 transplanted heart: [place] heart Associated angina: with stable angina Qualified Code(s): I25.118 - Atherosclerotic heart disease of [place] coronary artery with other forms of angina pectoris (5) Hyperlipidemia Code(s): E78.5 - HYPERLIPIDEMIA, UNSPECIFIED Qualifiers: Hyperlipidemia type: pure hypercholesterolemia Qualified Code(s): E78.00 - Pure hypercholesterolemia, unspecified; E78.0 - Pure hypercholesterolemia (6) Hypertensive cardiovascular disease Code(s): I11.9 - HYPERTENSIVE HEART DISEASE WITHOUT HEART FAILURE Qualifiers: Heart failure presence: without heart failure Qualified Code(s): I11.9 - Hypertensive heart disease without heart failure (7) Mitral regurgitation and aortic stenosis Code(s): I08.0 - RHEUMATIC DISORDERS OF BOTH MITRAL AND AORTIC VALVES (8) Persistent atrial fibrillation Code(s): I48.1 - PERSISTENT ATRIAL FIBRILLATION (9) S/P CABG (coronary artery bypass graft) Code(s): Z95.1 - PRESENCE OF AORTOCORONARY BYPASS GRAFT (10) S/P TAVR (transcatheter aortic valve replacement) Code(s): Z95.2 - PRESENCE OF PROSTHETIC HEART VALVE Assessment/Plan 02/21/2018 Echo: Normal LV size and fxn, severe MR, mod , TR RVSP 40-50 mmHg, paradoxical septal movement c/w post-op state, severe AGATHA, normal RV size and fxn 02/21/2018 Nuc stress: Mod size, mod intensity posterolateral ischemia, LVEF 60% 1. Orthostatic near syncope 2. CAD s/p CABG, PCI 3. Severe s/p TAVR, severe MR not candidate for Mitraclip 4. Hypertensive cardiovascular disease 5. Hyperlipidemia 6. Palpitations suspect afib with RVR on Xarelto P:1. Check orthostatic VS, stay well-hydrated, change positions slowly and addressed abortive maneuvers once prodromal sxs have been experienced 2. Agree with d/c ASA and continue Xarelto 15 qd given nuisance bleeds, continue losartan 25 qd, Lipitor 80 qd, Toprol XL 25 qd with uptitration as tolerated 3. Ambulate patient, if symptoms abated and afib rate-controlled, may d/c home with f/u with Dr. Dennis Lara 4. Outpatient holter to assess afib HR response 5. Thank you for consultative opportunity
--- NOTE | 2018-11-12 17:22 | DS ---
Physical Exam: SUBJECTIVE: Patient seen and examined OBJECTIVE: Vital Signs Period Temp Pulse Resp BP Sys/Reynoso Pulse Ox Last 24 Hr 97.6 F-98.2 F 72-89 18-20 143-163/51-83 97-99 PHYSICAL EXAM GENERAL: The patient is awake, alert, and fully oriented, in no acute distress. HEAD: Normal with no signs of trauma. EYES: PERRL, extraocular movements intact, sclera anicteric, conjunctiva clear. ENT: Ears normal, nares patent, oropharynx clear without exudates, moist mucous membranes. NECK: Trachea midline, full range of motion, supple. LUNGS: Breath sounds equal, clear to auscultation bilaterally, no wheezes, no crackles, no accessory muscle use. HEART: Regular rate and rhythm, S1, S2 without murmur, rub or gallop. ABDOMEN: Soft, nontender, nondistended, normoactive bowel sounds, no guarding, no rebound, no hepatosplenomegaly, no masses. EXTREMITIES: 2+ pulses, warm, well-perfused, no edema. NEUROLOGICAL: Cranial nerves II through XII grossly intact. Normal speech, gait not observed. PSYCH: Normal mood, normal affect. SKIN: Warm, dry, normal turgor, no rashes or lesions noted. LABS Laboratory Results - last 24 hr 11/12/18 11/12/18 11/12/18 02:04 02:04 09:32 WBC 7.8 RBC 4.19 Hgb 10.9 L Hct 34.0 L MCV 81.2 MCH 26.0 MCHC 32.0 RDW 17.9 H D Plt Count 180 D MPV 9.4 Absolute Neuts (auto) 5.3 Neutrophils % 68.9 Lymphocytes % 16.4 D Monocytes % 7.4 Eosinophils % 6.5 H Basophils % 0.8 PT with INR 15.4 H INR 1.38 H D PTT (Actin FS) 31.4 Sodium 134 L Potassium 3.7 Chloride 101 Carbon Dioxide 24 Anion Gap 9 BUN 18 Creatinine 1.0 Creat Clearance w eGFR > 60 Random Glucose 91 Calcium 8.5 Magnesium Total Bilirubin 1.0 AST 18 ALT 14 Alkaline Phosphatase 115 Creatine Kinase Troponin I B-Natriuretic Peptide 3554.2 H Total Protein 6.6 Albumin 3.2 L Urine Color Urine Appearance Urine pH Ur Specific [place] Urine Protein Urine Glucose (UA) Urine Ketones Urine Blood Urine Nitrite Urine Bilirubin Urine Urobilinogen Ur Leukocyte Esterase 11/12/18 11/12/18 11/12/18 09:32 09:32 09:41 WBC RBC Hgb Hct MCV MCH MCHC RDW Plt Count MPV Absolute Neuts (auto) Neutrophils % Lymphocytes % Monocytes % Eosinophils % Basophils % PT with INR INR PTT (Actin FS) Sodium Potassium Chloride Carbon Dioxide Anion Gap BUN Creatinine Creat Clearance w eGFR Random Glucose Calcium Magnesium 1.8 Total Bilirubin AST ALT Alkaline Phosphatase Creatine Kinase 34 Troponin I < 0.03 B-Natriuretic Peptide Total Protein Albumin Urine Color Yellow Urine Appearance Clear Urine pH 5.5 Ur Specific [place] 1.015 Urine Protein Negative Urine Glucose (UA) Negative Urine Ketones Negative Urine Blood Negative Urine Nitrite Negative Urine Bilirubin Negative Urine Urobilinogen 0.2 Ur Leukocyte Esterase Negative HOSPITAL COURSE: Date of Admission:11/12/18 Date of Discharge: 11/12/18 Minutes to complete discharge: 35 Discharge Summary Reason For Visit: DIZZINESS PRE-SYNCOPE Current Active Problems Anemia (Acute) Chronic anticoagulation (Acute) Light-headed (Acute) Palpitations (Acute) Pre-syncope (Acute) S/P TAVR (transcatheter aortic valve replacement) (Acute) Condition: Improved - Instructions Diet, Activity, Other Instructions: A new prescription for a higher dose of Xarelto has been sent to your pharmacy. Dr. Moses, the jewelry setter who saw you in the hospital, recommends you take this higher dose, 15mg daily. It is recommended you follow up with your jewelry setter, Dr. Dennis Lara, within one week of your discharge. Return to the emergency department with any new or worsening symptoms. Referrals: Dennis Lara [Non Staff, Medical] - Disposition: HOME - Home Medications Comprehensive Discharge Medication List: Ambulatory Orders Atorvastatin Ca [Lipitor] 80 mg PO DAILY 10/20/14 Losartan Potassium [Cozaar -] 25 mg PO DAILY #30 tablet 02/29/16 Metoprolol Succinate [Toprol XL -] 25 mg PO DAILY #30 tab.sr.24h 02/29/16 Aspirin [ASA -] 81 mg PO DAILY tab.chew 02/22/18 Rivaroxaban [Xarelto -] 10 mg PO DAILY 10/27/18 Doxycycline Hyclate 100 mg PO BID 11/12/18 Rivaroxaban [Xarelto -] 15 mg PO DAILY #30 tablet 11/12/18 This patient is new to me today: Yes Date on this admission: 11/12/18 Emergency Visit: Yes ED Registration Date: 11/12/18 Care time: The patient presented to the Emergency Department on the above date and was hospitalized for further evaluation of their emergent condition. Critical Care patient: No - Discharge Referral Referred to [facility] Med [facility] No
[2018-11-12 17:28] VITALS: BP 148/54; PULSE 88
[2018-11-12] MEDS ORDERED: DOXYCYCLINE HYCLATE 100 MG CAPSULE PO SCH (18:00)
--- NOTE | 2018-11-13 12:08 | EKG ---
Test Reason : Blood Pressure : / mmHG Vent. Rate : 068 BPM Atrial Rate : 044 BPM P-R Int : 000 ms QRS Dur : 110 ms QT Int : 414 ms P-R-T Axes : 000 -07 060 degrees QTc Int : 440 ms ATRIAL FIBRILLATION ABNORMAL ECG WHEN COMPARED WITH ECG OF 21-FEB-2018 09:21, NO SIGNIFICANT CHANGE WAS FOUND Confirmed by MD CALLEJAS PENG ([id number]) on 11/13/2018 12:08:15 PM Referred By: CHASE WILCOX Confirmed By:PARRISH CALLEJAS MD
== END 2018-11-12 17:40 | disposition home or self-care (01) ==
LOC: FER 08:48 → FM/S 10:25
PROVIDERS: ATTEND Nurse Practitioner Acute Care
PROC: 3E033GC Introduction of Other Therapeutic Substance into Peripheral Vein, Percutaneous Approach (ICD-10-PCS; principal; 2018-11-12)
DX: R55 Syncope and collapse (principal); R42 Dizziness and giddiness; R00.2 Palpitations; D64.9 Anemia, unspecified; I11.9 Hypertensive heart disease without heart failure; I48.1 Persistent atrial fibrillation; E78.5 Hyperlipidemia, unspecified; I25.10 Atherosclerotic heart disease of native coronary artery without angina pectoris; Z95.1 Presence of aortocoronary bypass graft; Z87.891 Personal history of nicotine dependence; Z79.01 Long term (current) use of anticoagulants; I08.0 Rheumatic disorders of both mitral and aortic valves; Z95.2 Presence of prosthetic heart valve
CPT/HCPCS: 36415; 70450-TC; 71045-TC-FY; 80053; 81003; 82550; 83735; 83880; 84484; 85025; 85610; 85730; 87086; 93005; 96374; 99283-25; G0378

== ENCOUNTER 2019-01-05 18:13 | Emergency (ER) | payer OTHER ==
[2019-01-05 18:33] VITALS: BP 150/65; PULSE 80; TEMP 98.5; BMI 20.4
[2019-01-05] MEDS ORDERED: EPINEPHrine/PF 1 MG/1 ML (1:1,000) AMPULE ONE (18:33)
--- NOTE | 2019-01-05 19:23 | PDOC ---
History of Present Illness <Obinna Walter - Last Filed: 01/05/19 19:18> - General History Source: Patient Exam Limitations: No Limitations - History of Present Illness Initial Comments: 01/05/19 19:25 The patient is an 88-year-old male with a past medical history significant for CAD s/p CABG, HTN, HLD, A-fib (on Xarelto), valve replacements (aortic in 2018) presents to the emergency department with right nare epistaxis. The patient reports he has a tiny little scab inside his nose to the left side of the right nare. The patient reports about an hour [employer] WORK[employer] he scratched the scab, since then he s been having perfused bleeding, states he soaked through 10 towels and 2 tampons. The patient reports a similar episode last week, that self-resolved. Denies any trauma or injury to the nose. Denies chest pain, shortness of breath. Denies hx of surgery to the nose. The patient reports taking Xarelto today. Allergies: Social: Pt denies any cigarette, alcohol, or drug use. Surgical: CABG, valve replacement, inguinal hernia repair (January 2018). PCP: Dr. Scott Obstetrics Teacher: Dr. Dennis Lara ([facility]) <Brittany Morel - Last Filed: 01/05/19 19:25> - General Chief Complaint: Nasal Bleeding Stated Complaint: NOSE BLEED Time Seen by Provider: 01/05/19 18:15 Past History - Past Medical History Anemia: No Asthma: No Cancer: No Cardiac Disorders: Yes (HX CAD) CVA: No COPD: No CHF: No Dementia: No Diabetes: No GI Disorders: Yes (4-5 YRS AGO ULCER FROM ASPIRIN-HEALED AFTER STOPPING ASPIRIN) Disorders: No HTN: Yes Hypercholesterolemia: Yes Liver Disease: No Seizures: No Thyroid Disease: No - Surgical History Abdominal Surgery: No Appendectomy: No Cardiac Surgery: Yes (20 YRS. CABG X 5, 2011 CABG X 3 OR 4-CAN'T REMEMBER) Cholecystectomy: No Lung Surgery: No Neurologic Surgery: No Orthopedic Surgery: No - Immunization History Immunization Up to Date: Yes - Suicide/Smoking/Psychosocial Hx Smoking History: Never smoked Have you smoked in the past 12 months: No If you are a former smoker, when did you quit?: 30 YRS AGO Information on smoking cessation initiated: No Hx Alcohol Use: No Drug/Substance Use Hx: No Substance Use Type: Alcohol Hx Substance Use Treatment: No <Obinna Walter - Last Filed: 01/05/19 19:18> <Brittany Morel - Last Filed: 01/05/19 19:25> - Past Medical History Allergies/Adverse Reactions: Allergies Allergy/AdvReac Type Severity Reaction Status Date / Time No Known Allergies Allergy Verified 01/05/19 18:15 Home Medications: Ambulatory Orders Atorvastatin Ca [Lipitor] 80 mg PO DAILY 10/20/14 Losartan Potassium [Cozaar -] 25 mg PO DAILY #30 tablet 02/29/16 Metoprolol Succinate [Toprol XL -] 25 mg PO DAILY #30 tab.sr.24h 02/29/16 Aspirin [ASA -] 81 mg PO DAILY tab.chew 02/22/18 Doxycycline Hyclate 100 mg PO BID 11/12/18 Rivaroxaban [Xarelto -] 15 mg PO DAILY #30 tablet 11/12/18 Review of Systems - Review of Systems Able to Perform ROS?: Yes Comments:: 01/05/19 19:25 Constitutional - Pt denies weakness, HEENT: +nose bleed. denies vision changes, sore throat Respiratory: Denies sob, hemoptysis Cardiac: denies chest pain, palpitations, lightheadedness, leg swelling skin - denies bruising, erythema, rash neurological: denies headache, numbness, focal weakness, tingling, ataxia, weakness hematologic: denies anemia, easy bruising, easy bleeding. <Brittany Morel - Last Filed: 01/05/19 19:25> *Physical Exam - Vital Signs Last Vital Signs Temp Pulse Resp BP Pulse Ox 98.5 F 80 20 150/65 80 L 01/05/19 18:14 01/05/19 18:14 01/05/19 18:14 01/05/19 18:14 01/05/19 18:14 - Physical Exam Comments: 01/05/19 19:18 ENT: raw area in medial aspect of R nare with active bleeding, no signs of posterior bleed GENERAL: no acute distress <Obinna Walter - Last Filed: 01/05/19 19:18> - Vital Signs Last Vital Signs Temp Pulse Resp BP Pulse Ox 98.5 F 80 20 150/65 80 L 01/05/19 18:14 01/05/19 18:14 01/05/19 18:14 01/05/19 18:14 01/05/19 18:14 <Brittany Morel - Last Filed: 01/05/19 19:25> Medical Decision Making - Medical Decision Making 01/05/19 19:20 88y F hx of afib on xeralto 15mg presents with epistaxis - had episode last week that stopped on its own, had rubbed his nose prior to onset today, bled for 1 hr prior to arrival. no anemic symptoms upon arrival attempted direct pressure iwhtteri sucess. was able to apply epnephrine directly to area of bleeding with improvement. topcial baictrcin applied observed without bleeding here for 20 min will dc with nose blowing precautions ent fu if recurrent bleeding A portion of this note was documented by scribe services under my direction. I have reviewed the details of the note, within reason, and agree with the documentation with the following case summary and management plan written by me <Obinna Walter - Last Filed: 01/05/19 19:18> *DC/Admit/Observation/Transfer - Discharge Dispostion Decision to Admit order: No <Obinna Walter - Last Filed: 01/05/19 19:18> - Attestations Scribe Attestion: 01/05/19 19:25 Documentation prepared by Brittany Morel, acting as medical record librarians teacher for Obnina Walter MD. <Brittany Morel - Last Filed: 01/05/19 19:25> Diagnosis at time of Disposition: Anterior epistaxis - Discharge Dispostion Disposition: HOME Condition at time of disposition: Improved - Referrals Referrals: Patrick Cardoza MD [Staff Physician] - - Patient Instructions Printed Discharge Instructions: DI for Nosebleed Additional Instructions: Do not put anything into your nose as you may dislodge the clot. If you must sneeze or cough, keep your mouth open to reduce the pressure. Follow up with an ENT if you have recurrent nose bleeds. If you have nose bleeds, immediatly put direct pressure over your nose and if it does not stop on its own after 15 min, come to the ED. Print Language: MICRONESIAN
[2019-01-05] MEDS ORDERED: EPINEPHrine 1:1,000 TOPICAL SOL 30 ML BTL NS ONE (19:30)
== END 2019-01-05 19:52 | disposition home or self-care (01) ==
LOC: SUPCPDRO 18:13 → FER 18:13
DX: R04.0 Epistaxis (principal); Z79.01 Long term (current) use of anticoagulants; Z87.81 Personal history of (healed) traumatic fracture; E78.00 Pure hypercholesterolemia, unspecified; I10 Essential (primary) hypertension; I25.10 Atherosclerotic heart disease of native coronary artery without angina pectoris; I48.91 Unspecified atrial fibrillation
CPT/HCPCS: 99281-25